=== PATIENT | male | born 1965 | race Two or more races ===

== ENCOUNTER → 2024-05-05 | Outpatient (CLI) | payer MEDICARE, MEDICAID, SELFPAY ==
[2024-05-05 08:44] LABS: Basophils % (Auto) 1 % (0-2.5); Eosinophils # (Auto) 0.1 Thou/mm3 (0.0-0.5); Eosinophils % (Auto) 4 % (0-10); Hematocrit 43.5 % (41.0-53.0); Hemoglobin 14.9 g/dL (13.5-16.0); Immature Granulocytes % (Auto) 0 % (0-0); Lymphocytes # (Auto) 0.5 Thou/mm3 (1.0-4.8); Lymphocytes % (Auto) 15 % (10-50); Mean Corpuscular HGB Conc 34.3 g/dl (31.0-37.0); Mean Corpuscular Hemoglobin 30.7 pg (25.0-35.0); Mean Corpuscular Volume 90 fL (80-100); Monocytes # (Auto) 0.3 Thou/mm3 (0.0-0.8); Monocytes % (Auto) 8 % (0-12); Neutrophils # (Auto) 2.4 Thou/mm3 (1.8-7.7); Neutrophils % (Auto) 73 % (37-80); Nucleated Red Blood Cell % 0 /100 WBC (0); Platelet Count 206 Thou/mm3 (140-440); RDW Standard Deviation 39.8 fL (35.1-43.9); Red Blood Count 4.85 Miln/mm3 (4.50-5.90); White Blood Count 3.3 Thou/mm3 (3.8-10.6)
[2024-05-05 09:14] LABS: Alanine Aminotransferase 32 U/L (10-49); Albumin, Serum 4.4 gm/dL (3.4-4.8); Albumin/Globulin Ratio 1.7 (1.2-2.2); Alkaline Phosphatase 123 U/L (46-116); Anion Gap 6 (7-16); Aspartate Amino Transferase 24 U/L (0-34); BUN/Creatinine Ratio 18 Ratio (12-20); Bilirubin,Total 0.9 mg/dL (0.3-1.2); Blood Urea Nitrogen 14 mg/dL (9-23); Calcium 9.6 mg/dL (8.3-10.6); Calcium (Corrected) 9.6 mg/dL (8.5-10.1); Carbon Dioxide 28.3 mMol/L (20.0-31.0); Chloride 105 mMol/L (98-107); Creatinine (Component) 0.8 mg/dL (0.6-1.3); Globulin 2.6 gm/dL (2.3-3.5); Glucose 87 mg/dL (74-106); Osmolality,Calculated 277 (275-295); Potassium 4.2 mMol/L (3.4-5.1); Sodium 139 mMol/L (136-145); eGFR > 60 See Note
[2024-05-07 22:09] LABS: CD19 Percentage 3 % (6-29); CD19, Absolute <20 cells/uL (110-660); CD3 Percentage 22 % (57-85); CD3, Absolute 106 cells/uL (840-3060); CD3-CD16+CD56+ % 76 % (4-25); CD3-CD16+CD56+ (Abs) 361 cells/uL (70-760); CD4 Percentage 8 % (30-61); CD4, Absolute 41 cells/uL (490-1740); CD4/CD8 Ratio 0.52 (0.86-5.00); CD8 Percentage 15 % (12-42); CD8, Absolute 77 cells/uL (180-1170)
[2024-05-10 06:41] LABS: Lymphocytes, Absolute 493 cells/uL (850-3900)
== END | disposition home or self-care (01) ==
LOC: COPL 07:15
PROVIDERS: PCP Psychiatry & Neurology Neurology; Referring Provider Psychiatry & Neurology Neurology; Visit Provider Psychiatry & Neurology Neurology
DX: G35 Multiple sclerosis (principal); E78.5 Hyperlipidemia, unspecified
CPT/HCPCS: 36415; 80053; 85025; 86355; 86357; 86359; 86360

== ENCOUNTER → 2024-08-23 | Outpatient (CLI) | payer MEDICARE, MEDICAID, SELFPAY ==
[2024-08-23 08:40] LABS: Basophils % (Auto) 1 % (0-2.5); Eosinophils # (Auto) 0.1 Thou/mm3 (0.0-0.5); Eosinophils % (Auto) 2 % (0-10); Hematocrit 43.1 % (41.0-53.0); Hemoglobin 14.3 g/dL (13.5-16.0); Immature Granulocytes % (Auto) 0 % (0-0); Immature Granulocytes Auto 0.01 Thou/mm3 (0.00-0.00); Lymphocytes # (Auto) 0.4 Thou/mm3 (1.0-4.8); Lymphocytes % (Auto) 11 % (10-50); Mean Corpuscular HGB Conc 33.2 g/dl (31.0-37.0); Mean Corpuscular Hemoglobin 30.1 pg (25.0-35.0); Mean Corpuscular Volume 91 fL (80-100); Monocytes # (Auto) 0.3 Thou/mm3 (0.0-0.8); Monocytes % (Auto) 8 % (0-12); Neutrophils # (Auto) 2.7 Thou/mm3 (1.8-7.7); Neutrophils % (Auto) 79 % (37-80); Nucleated Red Blood Cell % 0 /100 WBC (0); Platelet Count 240 Thou/mm3 (140-440); RDW Standard Deviation 40.3 fL (35.1-43.9); Red Blood Count 4.75 Miln/mm3 (4.50-5.90); White Blood Count 3.4 Thou/mm3 (3.8-10.6)
[2024-08-23 08:58] LABS: Alanine Aminotransferase 19 U/L (10-49); Albumin, Serum 4.1 gm/dL (3.4-4.8); Albumin/Globulin Ratio 1.6 (1.2-2.2); Alkaline Phosphatase 96 U/L (46-116); Anion Gap 5 (7-16); Aspartate Amino Transferase 18 U/L (0-34); BUN/Creatinine Ratio 24 Ratio (12-20); Bilirubin,Total 0.5 mg/dL (0.3-1.2); Blood Urea Nitrogen 19 mg/dL (9-23); Calcium 9.1 mg/dL (8.3-10.6); Calcium (Corrected) 9.1 mg/dL (8.5-10.1); Carbon Dioxide 29.6 mMol/L (20.0-31.0); Cardiac Risk Estimate 3.8 RATIO (4.0-6.7); Chloride 108 mMol/L (98-107); Cholesterol 172 mg/dL (132-200); Creatinine (Component) 0.8 mg/dL (0.6-1.3); Free T4 (Free Thyroxine) 1.24 ng/dL (0.89-1.76); Globulin 2.6 gm/dL (2.3-3.5); Glucose 94 mg/dL (74-106); HDL Cholesterol 45 mg/dL (40-60); LDL Cholesterol,Calculated 109 mg/dL (0-130); Osmolality,Calculated 287 (275-295); Sodium 143 mMol/L (136-145); Thyroid Stimulating Hormone 2.75 uIU/mL (0.55-4.78); Total Protein 6.7 gm/dL (5.7-8.2); Triglycerides 92 mg/dL (30-150); eGFR > 60 See Note
[2024-08-23 10:03] LABS: Glucose Estimated Average 103 mg/dL (80-131); Hemoglobin A1C 5.2 % Hgb (4.8-6.0)
[2024-08-23 10:11] LABS: Vitamin D 25 Hydroxy Total 35.2 ng/mL (7.3-40.2)
== END | disposition home or self-care (01) ==
PROVIDERS: PCP Internal Medicine; Referring Provider Internal Medicine; Visit Provider Internal Medicine
DX: M19.90 Unspecified osteoarthritis, unspecified site (principal); E55.9 Vitamin D deficiency, unspecified; E11.9 Type 2 diabetes mellitus without complications
CPT/HCPCS: 36415; 80053; 80061; 82306; 83036; 84439; 84443; 85025

== ENCOUNTER → 2024-08-25 | Outpatient (CLI) | payer MEDICARE, MEDICAID, SELFPAY ==
[2024-08-30 06:52] LABS: Fecal Globin Result NOT DETECTED (NOT DETECTED)
== END | disposition home or self-care (01) ==
LOC: SLDO 10:34
PROVIDERS: PCP Internal Medicine; Referring Provider Internal Medicine; Visit Provider Internal Medicine
DX: M19.90 Unspecified osteoarthritis, unspecified site (principal)
CPT/HCPCS: 82274; G0328

== ENCOUNTER 2025-01-11 14:00 | Inpatient (IN) | payer MEDICARE, MEDICAID, SELFPAY ==
[2025-01-11] VITALS (7 sets, daily range): BP systolic 104–134; BP diastolic 60–90; PULSE 67–113; RESP 13–96; TEMP 36.4–36.8; O2SAT 96–99; BMI 19.3; BMI 24.1
--- NOTE | 2025-01-11 | XR_ITS ---
Examination: MRI brain without intravenous contrast. Date and time of exam: January 11, 2025 1700 hours Comparison October 09, 2023 INDICATIONS: Stroke alert this a.m., onset focal neurologic deficit including slurred speech, history white matter change consistent with demyelinating disease on brain MRI October 09, 2023 Technique: Multiple axial and sagittal images of the brain obtained. Siemens high-resolution 1.5 Rea short bore scanners utilized. Sagittal sections, T1-weighted, TR 500, TE 14, are performed. Axial sections proton-density and T2-weighted have been obtained. Inversion recovery axial images, TR 9, 260, TE 111, TI 2500. Diffusion weighted images, axial sections, TR 4800, TE 128, B value 1000 Axial sections, ADC map, TR 4800, TE 128 Findings: Enlargement of the sella turcica is not present. The optic chiasm and infundibular are not remarkable. Prepontine and interpeduncular cisterns are not enlarged. There is no localized enlargement of the medulla or navdeep. Fourth ventricle and cerebellar tonsils appear normal in position. No subacute area of hemorrhage density is seen. Mass in the cerebellopontine angle region is not evident. Globes symmetrical. Orbital musculature including medial lateral rectus muscles do not exhibit abnormality. Diffusion-weighted images demonstrate no focus of restricted diffusion. Increased white matter signal prominent white matter change Mass effect upon the ventricular system is not identified. Impression: Negative for acute hemorrhage of mass effect or midline shift No acute infarct Prominent white matter change, differential would include accelerated chronic microvascular white matter change, demyelinating disease, clinical correlation advised
--- NOTE | 2025-01-11 14:08 | XR_ITS ---
Examination: CT brain head without contrast. 2-D sagittal coronal reconstructions Date and time of exam:December 20162024 1412 hours INDICATIONS: Stroke alert, onset focal neurologic deficit including surgical speech today CTDI: vol (mGy):49.6 DLP: (mGycm):1031 Technique: Multiple CT axial sections of the brain have been obtained, 5 mm slice thickness. Contrast has not been administered. 2-D sagittal, coronal reconstructions have been obtained Low dose protocols were performed. One or more of the following dose reduction techniques were used; automated exposure control, adjustment of the mA and/or KV according to patient size, use of iterative reconstruction technique. Findings: No significant ventricular enlargement. Intra-axial or extra-axial hemorrhage density is not seen. No mass effect or midline shift Basal cisterns are not remarkable. Fourth ventricle is midline. Cranial vault intact. Impression: Negative for acute hemorrhage, mass effect or midline shift
--- NOTE | 2025-01-11 14:08 | XR_ITS ---
Examination: CTA carotids with intravenous contrast CTA brain, head with intravenous contrast. 2-D sagittal, coronal reconstructions. 3-D reconstructions. Exam date and time: January 11, 2025 1429 hours INDICATIONS: Stroke alert, onset focal neurologic deficit including slurred speech today CTDI: vol (mGy) 15.9 DLP: (mGycm) 437 Technique: Multiple CTA axial brain, head carotid images post intravenous contrast injection 75 cc, Isovue-370. 2-D sagittal, coronal reconstructions. 3-D reconstructions, 3-D post processing including vascular maximum intensity projection images. Low dose protocols were performed. One or more of the following dose reduction techniques were used; automated exposure control, adjustment of the mA and/or KV according to patient size, use of iterative reconstruction technique. Findings: No common carotid carotid bifurcation or significant internal carotid artery stenoses Small right vertebral artery but the vertebral arteries in the neck appear intact No cerebral large vessel arterial occlusions or thrombus IMPRESSION: No significant neck arterial stenoses No cerebral large vessel arterial occlusions or thrombus
--- NOTE | 2025-01-11 14:08 | XR_ITS ---
Examination: AP chest single view TECHNIQUE: AP portable semiupright chest single view Date and time: January 11, 2025 1435 hours INDICATIONS: Altered mental status stroke alert today FINDINGS: No aspiration pneumonia Normal heart size Bones are demineralized IMPRESSION: No aspiration pneumonia
--- NOTE | 2025-01-11 14:08 | EKG_ITS ---
[facility] Test Date: 2025-01-11 Pat Name: SHAY WAY Department: Room: - Gender: Male Job Honer: : 1965 Requested By: Bal Valentine Order Number: [id number] Reading MD: Bal Valentine Measurements Intervals [place] Rate: 96 P: 56 CO: 160 QRS: -23 QRSD: 89 T: 60 QT: 355 QTc: 451 Interpretive Statements SINUS RHYTHM BORDERLINE LEFT AXIS DEVIATION [QRS AXIS < -20] No previous ECG available for comparison /store/S0/[id number].pdf
--- NOTE | 2025-01-11 14:12 | EDNOTE_ITS ---
ED General RME/HPI General Chief complaint: Weakness Stated complaint: ALTERED Time Seen by Provider: 01/11/25 14:07 Arrival date/time: 01/11/25 14:00 RME / HPI RME / HPI narrative: Patient comes in by EMS for reported abnormal speech: At 8:00 this morning but later this afternoon his speech was noted to be impaired and EMS was called and they brought him in for evaluation. He does have a history of multiple sclerosis and stopped taking his medicine 3 weeks ago. No family is present to explain what a normal speech this morning and is in because of that a stroke alert was called and patient was taken to the CT scanner at 1410 hrs. No other information is known at this time. Related Data Home Medications ?Medication ?Instructions ?Recorded ?Confirmed Unobtainable 09/01/18 09/01/18 Allergies Allergy/AdvReac Type Severity Reaction Status Date / Time aspirin Allergy Severe STOMACH Verified 01/11/25 15:02 IRRITATION Review of Systems Review of Systems Systems Reviewed: All systems reviewed, normal except as documented Past Medical History Past Medical History NEUROLOGIC: Positive Neurological Disorders and Multiple Sclerosis MUSCULOSKELETAL: Positive Musculoskeletal Disorders and Muscular Dystrophy (MULTIPLE SCLEROSIS) Surgical History SURGICAL: Positive Ear Surgery, Nose Surgery and Throat Surgery Social History SMOKING STATUS: Never smoker ED Exam Narrative Physical exam: Physical Exam: General: The vital signs were reviewed. Patient has very dysarthric speech he appears to give a good eye contact and appropriate response to questions accordingly. Hard to understand his verbal responses though. The patient is non-toxic, in no apparent distress and appears healthy with a patent airway, no respiratory distress and has no apparent circulatory problems. Head & Scalp: Normocephalic, atraumatic. Face: Appears normal and is without lesions, deformity. Ears: Left external pinna appears normal. Right external pinna appears normal. Eyes: The sclera is anicteric. No obvious photophobia. The Left and Right Orbit/Lid/Conjunctiva appears normal without swelling, discoloration or injection. Nose: The nose is without deformity, discharge or tenderness; Throat: Appears normal. The mucous membranes are pink and moist without exudates, redness or mass seen. The tongue appears normal. Neck: The neck is supple and no apparent mass or adenopathy. Chest: The chest wall is normal in size and symmetry and has no chest wall tenderness or crepitus. The patient displays normal ventilator effort without retractions, accessory muscle use and has adequate air movement bilaterally with no wheezes and no rales. Cardiovascular: Regular rate and rhythm; No murmurs, rubs, or gallops; Gastrointestinal: The abdomen appears normal. No obvious hernias or mass. The abdomen is soft and benign, non-distended, with no pain, no guarding and no rebound tenderness. Bowel sounds are present and normal sounding. No CVA tenderness. Genitourinary: Back/Spine: Normal inspection Extremities/Musculoskeletal/lymphatic: The bilateral upper and lower extremities are warm. There is no evidence of arterial insufficiency. There is no evidence of venous insufficiency/edema. The patient spontaneously moves bilateral upper and lower extremities with no pain and no limitation of movement. There is no apparent, injury or trauma. Skin: The skin is warm, dry and intact. No rashes. No petechia. No purpura. No abnormal bruising. The color is appropriate with no cyanosis. Mental status/Psychiatric: Mental status is appears to be appropriate no obvious suicidal homicidal or hallucinations. Neurological: The patient is awake, alert, interactive, cordial, cooperative and is oriented to name and situation. The patient follows commands and answers historical question with no impairment. Patient has obvious dysarthric voice and this sounds seem to respond to questions accordingly but she cannot understand any words. There is no visual disturbance apparent. The pupils are equal and reactive bilaterally with normal eye movements and no diplopia The bilatera he has some chronic baseline left arm weakness right arm dredge pipeman strength is normal he lifts both legs up while on the gurney with no obvious deficits. The gait, station and balance were not tested due to acuity Course Quality Measures Suspected type of Stroke: Non Acute Last known well (date): 01/11/25 Last known well (time): 08:00 Tenecteplase given: Reason(s) TPA not given: Outside the time window not given stroke Orders Category Date Time Status Bedside Blood Glucose NOW Care 01/11/25 14:08 Active Interior Assemblies Installer NOW Care 01/11/25 14:08 Active Continuous Pulse Oximetry NOW Care 01/11/25 14:08 Completed EKG (ED ONLY) *Do not use* NOW Care 01/11/25 14:08 Completed In and Out Catheter NEEDED Care 01/11/25 14:08 Active Insert IV NOW Care 01/11/25 14:08 Active MRI Screening NOW Care 01/11/25 14:51 Active MRI Screening NOW Care 01/11/25 14:53 Active NIH Stroke Scale now Care 01/11/25 14:08 Active NPO NOW Care 01/11/25 14:08 Completed Nurse Swallow Screen x1 Care 01/11/25 14:08 Completed Consult to Neurology / Tele-Neurology Routine Cons 01/11/25 14:08 Active Consult to Neurology / Tele-Neurology Stat Cons 01/11/25 16:[address] angio stroke protocol Stat Exams 01/11/25 14:[address] stroke protocol Stat Exams 01/11/25 14:08 Completed EKG (ED Only) Stat Exams 01/11/25 14:08 Draft MR head/brain wo con Stat Exams 01/11/25 Completed XR chest 1V portable Stat Exams 01/11/25 14:08 Completed CBC Stat Lab 01/11/25 14:26 Completed Comprehensive Metabolic Panel Stat Lab 01/11/25 14:26 Completed Drug Screen,Urine Stat Lab 01/11/25 15:50 Completed HCG Titer if Positive Stat Lab 01/11/25 14:26 Completed Magnesium Stat Lab 01/11/25 14:26 Completed Partial Thromboplastin Time Stat Lab 01/11/25 14:26 Completed Prothrombin Time with INR Stat Lab 01/11/25 14:26 Completed Troponin I Stat Lab 01/11/25 14:26 Completed Urinalysis Stat Lab 01/11/25 15:50 Completed Urine Culture Stat Lab 01/11/25 15:50 Received Oxygen Delivery NOW RT 01/11/25 14:08 Completed Vital Signs Vital signs: Vital Signs Pulse Rate 111 H 01/11/25 14:10 Respiratory Rate 14 01/11/25 14:10 Critical Care Time Critical Care Time Critical Care Time: Yes Total Critical Care Time (min.): 45 Attestation: Patient presented with acute stroke symptoms requiring a stroke alert. His acute onset of dysarthric symptoms are worsening as he has some residual MS in the background. See MDM for further discussion The high probability of sudden, clinically significant deterioration in the patient's condition required the highest level of my preparedness to intervene urgently. The services I provided to this patient were to treat and/or prevent clinically significant deterioration. Services included the following: chart data review, reviewing nursing notes and/or old charts, documentation time, client service consultant c ollaboration regarding findings and treatment options, medication orders and management, direct patient care, vital sign assessments and ordering, interpreting and reviewing diagnostic studies and lab tests. Aggregate critical care time includes only time during which I was engaged in work directly related to the patient's care, as described above, whether at bedside or elsewhere in the Emergency Department. It did not include time spent performing other reported procedures or the services of residents, students, nurses or physician assistants. Discharge Plan Plan Patient Disposition: Admit Acute Care w/in Hospital Discharge Disposition comment: Hospitalist to admit Dr Sheehan to consult Problem List Clinical Impression: Dysarthria, Hx of multiple sclerosis MDM Narrative MDM hospital course: Patient presents emergency room with new onset of dysarthria evidently worse from the baseline since 8:00 this morning. No patient is outside of the window for tPA. Stroke alert protocol was initiated. No Dr Sheehan is this patient's neurologist so I contacted her and she states the patient has chronic dysarthria but agrees with getting CT a CTA since there is some evidence of worsening. Or at least for the best of our history. Medical workup reveals a white count of 12.8 hemoglobin of 12.6 PT/INR within normal limits CHEM panel is unremarkable other than a potassium of 3.2. Urine came back negative catheter specimen with 5 red cells and 1 white cell drug screen was negative. test was Head CT came back negative CT of the head was also negative. Patient was a stroke alerted patient and teleneurologist called back felt this was not a tPA candidate which I agree is he is out of the window for that and there was no obvious acute evidence of CVA symptoms other than dysarthria which might even be chronic as it impossible to determine if his dysarthria is baseline or worse than baseline. Either way he is going to be admitted. Dr. Sheehan will be consulting and MRI is pending per request of the neurology people. Hospitalist was called and they will be admitting. Clinical Information Provided by patient and EMS Medical Records Reviewed [facility] and EMS I reviewed ED visit on 09/02/2018 Meds/Rx Considered, not Ordered None Labs/Rad/Tests considered, not Ordered None Chronic Illness/Social Conditions which may negatively complicate care or outcome(s)-explain: None or not applicable EKG Interpretation EKG #1: Date/time of EK01/11/25 15:19 pm EKG interpretation: Sinus rhythm, rate 96, no STEMI. Lab Interpretation Labs: see narrative above Imaging Imaging interpretation: see narrative above Radiology reports / interpretation(s): Ordering Physician: Bal Valentine MD Date of Service: 01/11/25 Procedure(s): XR chest 1V portable Accession Number(s): [id number] cc: Bal Valentine MD; Jose Suazo MD~ Examination: AP chest single view TECHNIQUE: AP portable semiupright chest single view Date and time: January 11, 2025 1435 hours INDICATIONS: Altered mental status stroke alert today FINDINGS: No aspiration pneumonia Normal heart size Bones are demineralized IMPRESSION: No aspiration pneumonia Dictated By: Jose Suazo MD Signed By: <Electronically signed by Jose Suazo MD in OV> 01/11/25 1501 Ordering Physician: Bal Valentine MD Date of Service: 01/11/25 Procedure(s): CT stroke protocol Accession Number(s): [id number] cc: Bal Valentine MD; Jose Suazo MD~ Examination: CT brain head without contrast. 2-D sagittal coronal reconstructions Date and time of exam:December 20162024 1412 hours INDICATIONS: Stroke alert, onset focal neurologic deficit including surgical speech today CTDI: vol (mGy):49.6 DLP: (mGycm):1031 Technique: Multiple CT axial sections of the brain have been obtained, 5 mm slice thickness. Contrast has not been administered. 2-D sagittal, coronal reconstructions have been obtained Low dose protocols were performed. One or more of the following dose reduction techniques were used; automated exposure control, adjustment of the mA and/or KV according to patient size, use of iterative reconstruction technique. Findings: No significant ventricular enlargement. Intra-axial or extra-axial hemorrhage density is not seen. No mass effect or midline shift Basal cisterns are not remarkable. Fourth ventricle is midline. Cranial vault intact. Impression: Negative for acute hemorrhage, mass effect or midline shift Dictated By: Jose Suazo MD Signed By: <Electronically signed by Jose Suazo MD in OV> 01/11/25 1416 Ordering Physician: Bal Valentine MD Date of Service: 01/11/25 Procedure(s): CT angio stroke protocol Accession Number(s): [id number] cc: Bal Valentine MD; Jose Suazo MD~ Examination: CTA carotids with intravenous contrast CTA brain, head with intravenous contrast. 2-D sagittal, coronal reconstructions. 3-D reconstructions. Exam date and time: January 11, 2025 1429 hours INDICATIONS: Stroke alert, onset focal neurologic deficit including slurred speech today CTDI: vol (mGy) 15.9 DLP: (mGycm) 437 Technique: Multiple CTA axial brain, head carotid images post intravenous contrast injection 75 cc, Isovue-370. 2-D sagittal, coronal reconstructions. 3-D reconstructions, 3-D post processing including vascular maximum intensity projection images. Low dose protocols were performed. One or more of the following dose reduction techniques were used; automated exposure control, adjustment of the mA and/or KV according to patient size, use of iterative reconstruction technique. Findings: No common carotid carotid bifurcation or significant internal carotid artery stenoses Small right vertebral artery but the vertebral arteries in the neck appear intact No cerebral large vessel arterial occlusions or thrombus IMPRESSION: No significant neck arterial stenoses No cerebral large vessel arterial occlusions or thrombus Dictated By: Jose Suazo MD Signed By: <Electronically signed by Jose Suazo MD in OV> 01/11/25 1500 Medication Administration(s) Medication Administration History Acetaminophen (Acetaminophen 325 Mg Tablet) 650 mg PO Q6H PRN PRN Reason: Fever >100.4 Stop: 02/10/25 17:21 Acetaminophen (Acetaminophen 325 Mg Tablet) 650 mg PO Q6H PRN PRN Reason: PAIN SCALE 1-3 (mild Stop: 02/10/25 17:21 Enoxaparin Sodium (Enoxaparin Sod Inj 40 Mg/0.4 Ml Syringe) 40 mg SC QDAY LIZZ Stop: 01/26/25 08:59 Magnesium Sulfate (Magnesium Sulfate Ivpb) 4 gm in 50 mls @ 12.5 mls/hr IV X1 ONE Stop: 01/11/25 21:38 Ondansetron HCl (Ondansetron Inj 2 Mg/Ml Inj 2 Ml) 4 mg IVP Q6H PRN; Protocol PRN Reason: NAUSEA OR VOMITING Stop: 02/10/25 17:21 Oxycodone/Acetaminophen (Oxycodone/Apap 5/325 Tablet) 1 tab PO Q6H PRN PRN Reason: PAIN SCALE 4-6 (Moderate Stop: 01/16/25 17:21 Pantoprazole Sodium (Pantoprazole 40 Mg Tablet) 40 mg PO QDAY LIZZ Stop: 02/11/25 08:59 Sennosides (Senna Tablet) 1 tab PO QDAY PRN; Protocol PRN Reason: constipation Stop: 02/10/25 17:21 Discontinued Medications Morphine Sulfate (Morphine Sulf Inj 10 Mg/Ml Vial) 1 mg IVP Q4HR PRN PRN Reason: PAIN SCALE 7-10 (Severe Stop: 01/16/25 17:21 Potassium Chloride (Potassium Chloride 20 Meq Tabcr) 40 meq PO X1 ONE Stop: 01/11/25 17:38 Consultations/Discussions re: Management Consult #1: Date/time: 01/11/25 14:34 PM Physician, specialty, service, details: I spoke with teleneurologist Dr. Patel. States patient is not a TNK candidate and is out of time window. Consult #2: Date/time: 01/11/25 16:45 PM Physician, specialty, service, details: I spoke with neurologist Dr. Sheehan. Discussed patients PMHx, HPI, ED course, exam findings, labs, and radiology results. Agrees to consult. Diagnosis Most likely dx, and/or detailed dx discussion: Dysarthria Hx of multiple sclerosis Dispositon Disposition: Admit
--- NOTE | 2025-01-11 14:35 | PD.TNEURO ---
Tele Neuro Consultation Consultation Date 01/11/25 Most Recent Vital Signs Last Vital Signs Temp 97.8 F 01/11/25 14:13 Pulse 108 H 01/11/25 14:13 Resp 18 01/11/25 14:13 BP 109/79 01/11/25 14:13 Pulse Ox 97 01/11/25 14:13 O2 Del Method Room Air 01/11/25 14:13 Consultation Narrative [facility] TeleNeurology Consult Services Patient Name:???mary gonzalez Date of :???1965 Identification Number:??? Date of Service:???01/11/2025 14:07:19 Diagnosis:?G93.49 - Encephalopathy Multifactorial ?R47.81 - Slurred speech Impression: ?Patient is a 59-year-old male with unclear past medical history,? 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 ?As per report patient presents with complaints of slurred speech by family members. Last well-known was 8 AM this morning. Patient himself endorses overall generalized weakness, does not complain of slurred speech. Mentions that it is his baseline. Appears mildly encephalipathic. Keeps talking about medication which he used to take several years back which made him fall. ?On exam mild extraocular motion deficits involving the left eye is noticed which patient claims is from the past. Mildly dysarthric speech unclear if it is his baseline. Severe left upper extremity ataxia. No clear lateralizing numbness or weakness. Endorses generalized overall weakness. Noncooperative for visual field exam. ?Head CT appears unremarkable with no acute intracranial hemorrhage or large territorial infarct. ? ? ?No clear focal neurological deficits which is new based on available history and exam. ?Unclear last well-known, 8 AM by best estimate, outside IV thrombolytic window. ?Differential diagnosis includes stroke, MS flareups, revisitation of prior MS symptoms, encephalopathy. ?Consider a broad encephalopathy workup with toxic, metabolic, infectious etiologies. ?Consider obtaining MRI brain with and without contrast. ?Continue CHIEF WRITER antithrombotics. Our recommendations are outlined below. Recommendations: ? Stroke/Telemetry Floor ? Neuro Checks (Q2) ? Bedside Swallow Eval ? DVT Prophylaxis ? IV Fluids, Normal Saline ? Head of Bed 30 Degrees ? Euglycemia and Avoid Hyperthermia (PRN Acetaminophen) ?No clear focal neurological deficits which is new based on available history and exam. ?Unclear last well-known, 8 AM by best estimate, outside IV thrombolytic window. ?Differential diagnosis includes stroke, MS flareups, revisitation of prior MS symptoms, encephalopathy. ?Consider a broad encephalopathy workup with toxic, metabolic, infectious etiologies. ?Consider obtaining MRI brain with and without contrast. ?Continue CHIEF WRITER antithrombotics. Advanced Imaging:Advanced imaging has been ordered. Results pending. Metrics: Last Known Well: 01/11/2025 08:00:00 Dispatch Time: 01/11/2025 14:07:18 Arrival Time: 01/11/2025 14:08:04 Initial Response Time: 01/11/2025 14:11:21Symptoms: Slurred speech. Initial patient interaction: 01/11/2025 14:16:10 NIHSS Assessment Completed: 01/11/2025 14:25:06Patient is not a candidate for Thrombolytic. Thrombolytic Medical Decision: 01/11/2025 14:25:45Patient was not deemed candidate for Thrombolytic because of following reasons: LKW outside 4.[address] Head: CT head unremarkable for acute infarction or hemorrhage per Radiology: report reviewed Primary Provider Notified of Diagnostic Impression and Management Plan on: 01/11/2025 14:34:42 History of Present Illness:Patient is a 59 year old Male. Patient was brought by EMS for symptoms of Slurred speech. Patient is a 59-year-old male with unclear past medical history,? 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 Initial report from medical staff at bedside suggest that patient was suffering from slurred speech which was noticed by son at around noon. The son initially checked on him at 8 AM this morning and he was seemingly normal. Patient himself is complaining of generalized weakness. Mentions that he went to bed yesterday night, he was feeling a little weird. He woke up this morning and he was able to get out of bed. Mentions that his speech is as it usually is. He keeps talking about some pills which he used to take, which made him fall in the restroom. He currently does not take pills. Unclear medication list at this time. He says he is weak all over his body. ? Past Medical History: Other PMH:? MS (previous left sided deficits), left eye Medications: Anticoagulant use:??Unknown Antiplatelet use:?Unknown Reviewed EMR for current medications Allergies:? Description:?As per chart Social History: Smoking: No Family History: There is no family history of premature cerebrovascular disease pertinent to this consultation ROS : 14 Points Review of Systems was performed and was negative except mentioned in HPI. Past Surgical History: There Is No Surgical History Contributory To Today?s Visit ? Examination: BP(110/81),?Pulse(89), 1A: Level of Consciousness - Alert; keenly responsive?+ 0 1B: Ask Month and Age - Both Questions Right?+ 0 1C: Blink Eyes & Squeeze Hands - Performs Both Tasks?+ 0 2: Test Horizontal Extraocular Movements - Normal?+ 0 3: Test Visual Gonzalez - No Visual Loss?+ 0 4: Test Facial Palsy (Use Grimace if Obtunded) - Normal symmetry?+ 0 5A: Test Left Arm Motor Drift - No Drift for 10 Seconds?+ 0 5B: Test Right Arm Motor Drift - No Drift for 10 Seconds?+ 0 6A: Test Left Leg Motor Drift - No Drift for 5 Seconds?+ 0 6B: Test Right Leg Motor Drift - No Drift for 5 Seconds?+ 0 7: Test Limb Ataxia (FNF/Heel-Christina) - Ataxia in 1 Limb?+ 1 8: Test Sensation - Normal; No sensory loss?+ 0 9: Test Language/Aphasia - Normal; No aphasia?+ 0 10: Test Dysarthria - Mild-Moderate Dysarthria: Slurring but can be understood?+ 1 11: Test Extinction/Inattention - No abnormality?+ 0 NIHSS Score:?2 NIHSS Free Text :?LUE ataxia, Noncooperative for visual field exam. would recommend in person evaluation. Pre-Morbid Modified [place] Scale:Unable to assess Spoke with :?ED Provider This consult was conducted in real time using interactive audio and video technology. Patient was informed of the technology being used for this visit and agreed to proceed. Patient located in hospital and provider located at home/office setting. Patient is being evaluated for possible acute neurologic impairment and high probability of imminent or life-threatening deterioration. I spent total of 43 minutes providing care to this patient, including time for face to face visit via telemedicine, review of medical records, imaging studies and discussion of findings with providers, the patient and/or family. Dr Jerrell Patel [facility] For Inpatient follow-up with [facility] physician please call [facility] at . As we are not an outpatient service for any post hospital discharge needs please contact the hospital for assistance. If you have any questions for the [facility] physicians or need to reconsult for clinical or diagnostic changes please contact us via [facility] at . ?
[2025-01-11 14:39] LABS: Basophils # (Auto) 0.0 Thou/mm3 (0.0-0.2); Basophils % (Auto) 0 % (0-2.5); Eosinophils # (Auto) 0.0 Thou/mm3 (0.0-0.5); Eosinophils % (Auto) 0 % (0-10); Hematocrit 36.3 % (41.0-53.0); Hemoglobin 12.6 g/dL (13.5-16.0); Immature Granulocytes Auto 0.08 Thou/mm3 (0.00-0.00); Lymphocytes # (Auto) 0.1 Thou/mm3 (1.0-4.8); Lymphocytes % (Auto) 1 % (10-50); Mean Corpuscular HGB Conc 34.7 g/dl (31.0-37.0); Mean Corpuscular Hemoglobin 30.1 pg (25.0-35.0); Mean Corpuscular Volume 87 fL (80-100); Monocytes # (Auto) 0.3 Thou/mm3 (0.0-0.8); Monocytes % (Auto) 2 % (0-12); Neutrophils # (Auto) 12.2 Thou/mm3 (1.8-7.7); Neutrophils % (Auto) 96 % (37-80); Nucleated Red Blood Cell # 0.00 Thou/mm3 (0.00-0.00); Nucleated Red Blood Cell % 0 /100 WBC (0); Platelet Count 211 Thou/mm3 (140-440); RDW Standard Deviation 39.8 fL (35.1-43.9); Red Blood Count 4.18 Miln/mm3 (4.50-5.90); White Blood Count 12.8 Thou/mm3 (3.8-10.6)
[2025-01-11 14:54] LABS: HCG Titer if Positive Negative; INR 1.1 (0.9-1.3); Partial Thromboplastin Time 25.2 Seconds (22.0-36.0); Prothrombin Time 12.0 Seconds (9.0-12.2)
--- NOTE | 2025-01-11 15:03 | PC.NURSE ---
PER DR. LOVE, TELENEUROLOGIST, PT NIH SCORE OF 2. PT NOT A CANDIDATE FOR TNK AT THIS TIME.
[2025-01-11 15:10] LABS: Alanine Aminotransferase 10 U/L (10-49); Albumin, Serum 3.9 gm/dL (3.4-4.8); Albumin/Globulin Ratio 1.4 (1.2-2.2); Alkaline Phosphatase 80 U/L (46-116); Anion Gap 10 (7-16); Aspartate Amino Transferase 17 U/L (0-34); BUN/Creatinine Ratio 15 Ratio (12-20); Bilirubin,Total 0.9 mg/dL (0.3-1.2); Blood Urea Nitrogen 12 mg/dL (9-23); Calcium 8.7 mg/dL (8.3-10.6); Calcium (Corrected) 8.8 mg/dL (8.5-10.1); Carbon Dioxide 24.2 mMol/L (20.0-31.0); Chloride 104 mMol/L (98-107); Creatinine (Component) 0.8 mg/dL (0.6-1.3); Estimated Creatinine Clearance 90.7 mL/min (>60); Globulin 2.7 gm/dL (2.3-3.5); Glucose 100 mg/dL (74-106); Magnesium 1.6 mg/dL (1.6-2.6); Osmolality,Calculated 275 (275-295); Potassium 3.2 mMol/L (3.4-5.1); Sodium 138 mMol/L (136-145); Total Protein 6.6 gm/dL (5.7-8.2); Troponin I < 0.020 ng/mL (0.0-0.045); eGFR > 60 See Note
[2025-01-11 16:03] LABS: Collection Type, Urine Catheter; Squamous Epithelial Cell,Urine 0 /hpf (0-5)
[2025-01-11 16:10] LABS: Bilirubin,Urine Negative (Negative); Blood,Urine Negative (Negative); Clarity,Urine Clear (Clear/Hazy); Color,Urine Yellow (Lt Yel-Yel); Glucose, Urine Negative (Negative); Ketones,Urine 1+ (Negative); Leukocyte Esterase,Urine Negative (Negative); Nitrite,Urine Negative (Negative); PH,Urine 7.0 (5.0-7.0); Protein,Urine Negative (Neg - Trace); RBC,Urine 5 /hpf (0-3); Urobilinogen,Urine 2.0 mg/dL (0.0-1.0); WBC,Urine 1 /hpf (0-5)
[2025-01-11 16:14] LABS: Specific Gravity,Urine 1.010 (1.001-1.035)
[2025-01-11 16:15] LABS: Amphetamine/Methamp Scrn,U Negative (Negative); Barbiturate Screen,Urine Negative (Negative); Benzodiazepines Screen,Urine Negative (Negative); Benzoylecgonine Screen, Ur Negative (Negative); Fentanyl Screen,Urine Negative (Negative); Opiate Screen,Urine Negative (Negative); THC Screen,Urine Negative (Negative)
--- NOTE | 2025-01-11 17:47 | ESHP_ITS ---
<Statement entered by Andrew Rader MD - 01/12/25 16:39> Patient was seen and examined at bedside. This patient is a 59-year-old male with past medical history of MS with residual left eye extraocular deficit not on immunotherapy presented with slurred speech. He does have a history of MS and stopped taking his medications 3 weeks ago. Last well-known time 8 AM. He was complaining of generalized weakness.NIHSS score 2. Head CT showed no acute changes. Head and neck CTA showed no large vessel occlusion. Teleneuro recommended admission for stroke workup. Will follow-up on MRI brain without contrast, echocardiogram with bubble study and neurology recommendations. Potassium was repleted. White count slightly elevated around 12.8. Magnesium was repleted. Urinalysis showed trace RBCs. EKG showed sinus rhythm with QTc 451. Chest x-ray showed no aspiration pneumonia. Patient does follows Dr. Sheehan, neurologist as outpatient. Of note, MRI brain from October 09, 2023 showed progression of white matter changes consistent with demyelinating disease. Awaiting MRI brain results. I discussed and supervised with the learning and development intern physician who took care of this patient. I personally saw and examined the patient. I agree with most of the assessment and plan. Disclaimer: Despite multiple revisions, due to the dictation software being used, the document bellow may not be free of grammatical errors including phonetic/typographic errors. However, this does not deter from our commitment to providing health care in the patient's best interest in mind. Plan of care discussed with attending Physician Dr. Nuno Rader MD PGY-3 Documentation for date of: 01/11/25 HPI History of Present Illness Chief complaint: Weakness History of present illness: Mr. James is a 59M with history of multiple sclerosis and dysarthria presents for weakness. Pt reports less arousable this morning and the son noticed he was having a slur speech that's different from his baseline, which prompted him to call 911 due to concern for possible stroke. Pt was last seen normal at 8am this morning. On initial encounter, pt is alert and oriented x 3. No facial asymmetry or focal neuro deficit noted. He complains of pain on his left hand, which he reports had greatly improved since he stopped taking his MS medications a month ago. He states that he stopped taking his MS medications a month prior because it is making him pee blood . He denies any history of a MS flare up before. Pt denies chest pain, shortness of breathe, clotting history, dysuria, diarrhea, constipation or vision change, but does mention a history of left optic nerve problem, which he is unaware of specific details. Upon return from MRI, the son states he looks a lot better, almost back to his baseline. On 01/11/2025, 6:30 PM. discussed with Mr. James the implications of a Do Not Resuscitate (DNR) order. Mr. James verbalized understanding that a DNR means no CPR or other resuscitative efforts would be made in the event of cardiac or respiratory arrest. Mr. James stated he does not want to be resuscitated and understands the potential consequences of this decision. Son present at bedside. Pt is [place] speaking, an interpretor was used for this encounter. He is admitted for stroke rule out. ED Course In the ED, intial labs show WBC 12.8, Hgb 12.6, Pt 12, ptt 25.2, INR 1.1, Na 138, K 3.2, Cl 104, Cr 0.8. Stroke alert called at 1455. CXR unremarkable. CT head negative for acute hemorrhage, mass effect or midline shift. CTA head and neck shows no significant neck arterial stenosis, no LVO. MRI non con head reads prominent white matter change. EKG NSR at rate of 96. POC Glucose 104. VS stable. Tele Neurologist consulted, NIHSS of 2, pt not a candidate for TnK at this time per tele neuro recommendation. ROS * Constitutional: NAD, a/o x 3, denies fever/chills. * GI: Denies nausea, vomiting. Normal BM. * CV: Denies chest pain or palpitations. * Resp: Denies SOB. * : Denies dysuria, CVA tenderness, suprapubic tenderness. * Neuro: Denies dizziness, no focal deficits. Dysarhtria at baseline. Chronic left arm pain. Past Medical History * Hx of multiple sclerosis * Dysarthria Social History * Lives at home, independent baseline with walker. * Remote history of smoking, alcohol, and cocaine use. Reports cessation 31 years ago. Surgical History * Left ear surgery, unspecific * Nose surgery, unspecific * Tonsillectomy Allergies * Aspirin Home Meds * Fingolimod HCL 0.5mg PO QD (NOT TAKING) * Baclofen 10mg (NOT TAKING) * Glycopyrrolate 1mg (NOT TAKING) Exam Vital Signs Temp Pulse Resp BP Pulse Ox O2 Del Method 97.6 F 88 21 H 105/70 96 Room Air 01/11/25 16:38 01/11/25 16:38 01/11/25 16:38 01/11/25 16:38 01/11/25 16:38 01/11/25 16:38 Narrative Exam General: NAD. Oriented x 3, normal mood and affect . Ambulate with walker at home. Skin: Good turgor, no rash, unusual bruising or prominent lesions Head: Normocephalic, atraumatic, no visible or palpable masses, depressions, or scaring. Eyes: Visual acuity intact, conjunctiva clear, sclera non-icteric, EOM intact, PERRL, no exudates or hemorrhages. Horizontal nystagmus on right gaze. Heart: No cardiomegaly or thrills; regular rate and rhythm, no murmur or gallop Lungs: Clear to auscultation and percussion. No rales, wheeze, or rhonchi Abdomen: Bowel sounds normal, no tenderness, organomegaly, masses, or hernia Back: No CVA tenderness Extremities: No amputations or deformities, cyanosis, edema or varicosities, peripheral pulses intact. 5/5 strength is all four extremities. Musculoskeletal: Muscle atrophy consistent with old age Neurologic: Sensation to pain, touch, and proprioception normal. Results: Labs 01/13/25 05:25 01/13/25 05:25 Labs: Short CBC 01/11/25 Range/Units 14:26 WBC 12.8 H (3.8-10.6) Thou/mm3 Hgb 12.6 L (13.5-16.0) g/dL Hct 36.3 L (41.0-53.0) % Plt Count 211 (140-440) Thou/mm3 BMP 01/11/25 14:26 Sodium 138 Potassium 3.2 L Chloride 104 Carbon Dioxide 24.2 BUN 12 Creatinine 0.8 Glucose 100 Calcium 8.7 Cardiac Enzymes 01/11/25 Range/Units 14:26 Troponin I < 0.020 (0.0-0.045) ng/mL Liver Function 01/11/25 Range/Units 14:26 Total Bilirubin 0.9 (0.3-1.2) mg/dL AST 17 (0-34) U/L ALT 10 (10-49) U/L Alkaline Phosphatase 80 (46-116) U/L Albumin 3.9 (3.4-4.8) gm/dL Urine 01/11/25 Range/Units 15:50 Urine Color Yellow (Lt Yel-Yel) Urine Clarity Clear (Clear/Hazy) Urine pH 7.0 (5.0-7.0) Ur Specific [place] 1.010 (1.001-1.035) Urine Protein Negative (Neg - Trace) Urine Glucose (UA) Negative (Negative) Quality Measures Quality Measures VTE prophylaxis and stroke Suspected type of Stroke: Non Acute Last known well (date): 01/11/25 Last known well (time): 08:00 Tenecteplase given: Reason(s) Tenecteplase not given: Outside the time window not given Rehab services: PT evaluation ordered and Speech Language Pathology eval ordered VTE Prophylaxis: pharmaceutical Antithrombotic by day 2:: no, due to drug allergy (Pt has drug allergy to aspirin. ) Statin ordered: n/a Anticoagulation ordered for A-fib or flutter (current or hx): not indicated Medications Home Medications and Allergies Home Medications ?Medication ?Instructions ?Recorded ?Confirmed ?Type No Known Home Medications 01/12/2512/22 History Allergies Allergy/AdvReac Type Severity Reaction Status Date / Time aspirin Allergy Severe STOMACH Verified 01/11/25 15:02 IRRITATION Visit Medications Acetaminophen (Acetaminophen 325 Mg Tablet) 650 mg PO Q6H PRN PRN Reason: Fever >100.4 Stop: 02/10/25 17:21 Acetaminophen (Acetaminophen 325 Mg Tablet) 650 mg PO Q6H PRN PRN Reason: PAIN SCALE 1-3 (mild Stop: 02/10/25 17:21 Enoxaparin Sodium (Enoxaparin Sod Inj 40 Mg/0.4 Ml Syringe) 40 mg SC QDAY LIZZ Stop: 01/26/25 08:59 Magnesium Sulfate (Magnesium Sulfate Ivpb) 4 gm in 50 mls @ 12.5 mls/hr IV X1 ONE Stop: 01/11/25 21:38 Ondansetron HCl (Ondansetron Inj 2 Mg/Ml Inj 2 Ml) 4 mg IVP Q6H PRN; Protocol PRN Reason: NAUSEA OR VOMITING Stop: 02/10/25 17:21 Oxycodone/Acetaminophen (Oxycodone/Apap 5/325 Tablet) 1 tab PO Q6H PRN PRN Reason: PAIN SCALE 4-6 (Moderate Stop: 01/16/25 17:21 Pantoprazole Sodium (Pantoprazole 40 Mg Tablet) 40 mg PO QDAY LIZZ Stop: 02/11/25 08:59 Sennosides (Senna Tablet) 1 tab PO QDAY PRN; Protocol PRN Reason: constipation Stop: 02/10/25 17:21 Discontinued Medications Morphine Sulfate (Morphine Sulf Inj 10 Mg/Ml Vial) 1 mg IVP Q4HR PRN PRN Reason: PAIN SCALE 7-10 (Severe Stop: 01/16/25 17:21 Potassium Chloride (Potassium Chloride 20 Meq Tabcr) 40 meq PO X1 ONE Stop: 01/11/25 17:38 Assessment & Plan Plan 59M with history of MS and dysarthria presents for weakness. Concerns for possible stroke by family member due to slur speech that is uncharacteristic to his baseline. Stroke alert initiated in ED. Initial CT head and CTA Head and neck unremarkable. MRI Brain shows prominent white matter change, correlating with MS history. Admitted for stroke rule out #Stroke rule out #MS Flareup #Dysarthia Initial stroke work up negative. Negative CT head and CTA head and neck. No focal neuro deficit noted on physical exam. NIHSS of 2. - Tele Neuro consulted. Dr. Patel recommends no intervention at this time. Pt not a candidate for TnK. - In-house neuro consult - Pending MRI Brain with contrast - Pending echo - failed swallow screen - Neuro check Q4H - aspiration precaution - NPO now - PT eval - Speech eval #Encephalopathy - UDS negative - Glucose 100 on admission - AST/ALT WNL on admission #Hypothyroidism - Pending TSH Dispo: Tele DVT prophylaxis: Lovenox 40mg QD GI prophylaxis: Protonix 40mg QD Diet: NPO Lines: Peripheral IV Code status: DNR Case discussed with my senior resident Dr. Schmidt Case discussed with my attending Dr. Nuno Chamberlain DO PGY 1 Attending Provider Attestation/Addendum Negin Muñoz DO, attest that I was physically present for the wei portions of the service and evaluated the patient with the resident and I reviewed and discussed the case with the resident and agree with the resident's findings and plans of care as documented above Patient is a 59-year-old male with past medical history of multiple sclerosis and dysarthria who presented to the ED due to worsening weakness and unresponsiveness this morning. Patient does have slurred speech at baseline, but due to inability to arouse patient, family called EMS and patient was subsequently brought to the ED during which a stroke alert was called. Upon evaluation, patient was noted to be alert and oriented x 3. He does have some slurred speech, but is intelligible. A CT head was done showing no acute intracranial findings. MRI without contrast also was done showing no acute infarct. However, due to concern for possible MS flare, hospice service was called from ED and to further workup acute CVA versus MS flare. At time of evaluation, neurology was at bedside. Patient appears to be back at his baseline mental status. Patient states that he does not like to take any of his MS medications including fingolimod due to worsening of his left arm pain. He states that he stopped his medications for over a month which resulted in relief of his left arm pain. In the ED, he was found to have leukocytosis and mild hypokalemia. However, rest of labs were unremarkable. Patient is able to move all 4 extremities with mild left upper extremity weakness. He is also noted to have horizontal nystagmus on exam. Case was discussed with neurology, plan for MRI with contrast to assess for possible MS flare/reactivation. Will also have physical therapy work with patient.
[2025-01-11] MEDS: Magnesium Sulfate 4 GM Ivpb 4 GM/50 ML BAG IV (18:07)
--- NOTE | 2025-01-11 23:42 | PD.NEUROCONS ---
History of Present Illness Data of Consult Requesting Physician: Negin Reina DO Primary Care Provider: Michele Leggett MD Consult Narrative History of present illness: Mr. James is a 59M with multiple sclerosis with baseline dysarthria known to me from outpatient evaluation presented for generalized weakness. Reportedly he was altered with less arousable this morning and the son noticed his speech was very much slurred that's different from his baseline, which prompted him to call 911 due to concern for possible stroke. Pt was last seen normal at 8am this morning. He was noted to be alert and oriented without any focal neuro deficit. He complains of pain on his left hand, which he thinks that greatly improved since he stopped taking his MS medications a month ago. He states that he stopped taking his MS medications a month prior because it is making him pee blood . He denies any history of a MS flare up before and immediately after. When he returned from MRI,his son stated he looks a lot better, almost back to his baseline. However, he is admitted for stroke rule out. Workup in the ER: Vitals: afebrile and stable Labs: WBC 12.8, Hgb 12.6, Pt 12, ptt 25.2, INR 1.1, Na 138, K 3.2, Cl 104, Cr 0.8. Imaging: CXR unremarkable. CT head negative for acute hemorrhage, mass effect or midline shift. CTA head and neck shows no significant neck arterial stenosis, no LVO. MRI non con head reads prominent white matter changes consistent with MS. Tele Neurologist consulted, NIHSS of 2, pt not a candidate for TnK at this time per tele neuro recommendation. Inhouse neurology was consulted and we decided to admit him for further workup. cc:: cc: Negin Reina DO Review of Systems Review of Systems Systems Reviewed: All systems reviewed, normal except as documented Past Medical History Past Medical History NEUROLOGIC: Positive Neurological Disorders and Multiple Sclerosis MUSCULOSKELETAL: Positive Musculoskeletal Disorders and Muscular Dystrophy (MULTIPLE SCLEROSIS) Surgical History SURGICAL: Positive Ear Surgery, Nose Surgery and Throat Surgery Social History SMOKING STATUS: Never smoker Meds Home Medications and Allergies Home Medications ?Medication ?Instructions ?Recorded ?Confirmed ?Type No Known Home Medications 01/12/25 01/12/25 History Allergies Allergy/AdvReac Type Severity Reaction Status Date / Time aspirin Allergy Severe STOMACH Verified 01/11/25 15:02 IRRITATION Exam - Neurology Vital Signs Temp Pulse Resp BP Pulse Ox O2 Del Method 97.6 F 91 15 134/90 H 98 Room Air 01/11/25 20:06 01/11/25 20:06 01/11/25 20:06 01/11/25 20:06 01/11/25 20:06 01/11/25 20:06 Narrative Exam GENERAL APPEARANCE: well developed, thin built male in no acute distress. HEENT: Normocephalic, atraumatic, extraocular movements intact. Pupils: Equal reacting to light and accommodation NECK: Supple, no JVD or bruits. CARDIOVASULAR: Heart: S1, S2 heard, regular without S3-S4 or murmur no rubs or gallops. LUNGS/CHEST: Clear to auscultation bilaterally. No rails, rhonchi, or wheezing. Normal inspection. ABDOMEN: Soft, nontender, with normal bowel sounds. No pulsatile masses. No rebound, rigidity, or guarding. Normal inspection and palpation. EXTREMITIES: Normal inspection and palpation. No edema, clubbing or cyanosis. SKIN: Warm and dry without rashes. Normal inspection. MUSCULOSKELETAL: No cervical, thoracic, lumbar or midline bony tenderness. Normal inspection. NEURO: Alert, awake and oriented x3. Cranial nerves: II through XII grossly intact. Speech and language: dysarthria as at baseline. Motor system: Tone and bulk: Normal: Strength: 5 out of 5 in all 4 extremities; No pronator drift noted. Deep tendon reflexes: 2+ bilaterally symmetrical. Plantar reflex: Downgoing bilaterally. Sensory system: Intact to all modalities of sensation bilaterally. Coordination: Intact to kunljg-cvlt-humkr and jtgq-ltlf-rgcx test bilaterally. Significant ataxia and dysmetria noted. No intention tremors noted. Gait: not tested. No signs of meningeal irritation noted. PSYCHIATRIC: Normal mood and affect. Results Labs 01/12/25 05:03 01/12/25 05:03 Labs: Short CBC 01/11/25 Range/Units 14:26 WBC 12.8 H (3.8-10.6) Thou/mm3 Hgb 12.6 L (13.5-16.0) g/dL Hct 36.3 L (41.0-53.0) % Plt Count 211 (140-440) Thou/mm3 BMP 01/11/25 14:26 Sodium 138 Potassium 3.2 L Chloride 104 Carbon Dioxide 24.2 BUN 12 Creatinine 0.8 Glucose 100 Calcium 8.7 Cardiac Enzymes 01/11/25 Range/Units 14:26 Troponin I < 0.020 (0.0-0.045) ng/mL Liver Function 01/11/25 Range/Units 14:26 Total Bilirubin 0.9 (0.3-1.2) mg/dL AST 17 (0-34) U/L ALT 10 (10-49) U/L Alkaline Phosphatase 80 (46-116) U/L Albumin 3.9 (3.4-4.8) gm/dL Urine 01/11/25 Range/Units 15:50 Urine Color Yellow (Lt Yel-Yel) Urine Clarity Clear (Clear/Hazy) Urine pH 7.0 (5.0-7.0) Ur Specific [place] 1.010 (1.001-1.035) Urine Protein Negative (Neg - Trace) Urine Glucose (UA) Negative (Negative) Assessment & Plan Assessment and plan (1) Dysarthria: Status: Acute Assessment and plan: improving. speech close to baseline. Needs swallow assessment and the decide about starting oral diet with appropriate consistency to prevent aspiration. reassured him regarding the negative MRI for acute stroke or acute MS exacerbation. But will need contrasted MRI brain tomorrow to see if he has any active lesions. (2) Hx of multiple sclerosis: Status: Chronic Assessment and plan: not interested in restarting disease modifying treatment at this time. Will do PT evaluation and then decide about the need for high dose Steroid infusion x3 days (3) Recent unexplained weight loss: Status: Acute Assessment and plan: consider w/u to know the etiology by primary team. (4) Hypokalemia: Status: Acute Assessment and plan: needs replacement
[2025-01-12] VITALS (10 sets, daily range): BP systolic 99–123; BP diastolic 63–80; PULSE 60–91; RESP 15–99; TEMP 36.3–37.1; O2SAT 97–100; BMI 15.0
--- NOTE | 2025-01-12 | XR_ITS ---
Examination: MRI brain with intravenous contrast TECHNIQUE: Multiple axial sagittal coronal brain MRI images post intravenous administration 11 cc gadolinium INDICATIONS: Slurred speech beginning yesterday, diagnosis multiple sclerosis Date and time: January 12, 2025 1412 hours Comparison noncontrast brain MRI January 11, 2025 FINDINGS: Ventricles are not enlarged. No mass effect upon the ventricular system. No effacement cortical sulcal markings. Significant bilateral mastoiditis. No abnormal enhancing cerebellar or cerebral lesions IMPRESSION: No abnormal enhancing cerebellar or cerebral lesions
[2025-01-12 05:27] LABS: Basophils # (Auto) 0.0 Thou/mm3 (0.0-0.2); Basophils % (Auto) 0 % (0-2.5); Eosinophils # (Auto) 0.0 Thou/mm3 (0.0-0.5); Eosinophils % (Auto) 0 % (0-10); Hematocrit 36.3 % (41.0-53.0); Hemoglobin 12.6 g/dL (13.5-16.0); Immature Granulocytes Auto 0.04 Thou/mm3 (0.00-0.00); Lymphocytes # (Auto) 0.3 Thou/mm3 (1.0-4.8); Lymphocytes % (Auto) 3 % (10-50); Mean Corpuscular HGB Conc 34.7 g/dl (31.0-37.0); Mean Corpuscular Hemoglobin 29.9 pg (25.0-35.0); Mean Corpuscular Volume 86 fL (80-100); Monocytes # (Auto) 0.3 Thou/mm3 (0.0-0.8); Monocytes % (Auto) 3 % (0-12); Neutrophils # (Auto) 9.2 Thou/mm3 (1.8-7.7); Neutrophils % (Auto) 93 % (37-80); Nucleated Red Blood Cell # 0.00 Thou/mm3 (0.00-0.00); Nucleated Red Blood Cell % 0 /100 WBC (0); Platelet Count 165 Thou/mm3 (140-440); RDW Standard Deviation 39.8 fL (35.1-43.9); Red Blood Count 4.21 Miln/mm3 (4.50-5.90); White Blood Count 9.9 Thou/mm3 (3.8-10.6)
[2025-01-12 05:45] LABS: INR 1.2 (0.9-1.3); Prothrombin Time 13.3 Seconds (9.0-12.2)
[2025-01-12 05:50] LABS: Glucose Estimated Average 111 mg/dL (80-131); Hemoglobin A1C 5.5 % Hgb (4.8-6.0)
[2025-01-12 06:12] LABS: Alanine Aminotransferase 10 U/L (10-49); Albumin, Serum 3.8 gm/dL (3.4-4.8); Albumin/Globulin Ratio 1.4 (1.2-2.2); Alkaline Phosphatase 81 U/L (46-116); Anion Gap 10 (7-16); Aspartate Amino Transferase 19 U/L (0-34); BUN/Creatinine Ratio 15 Ratio (12-20); Bilirubin,Total 0.9 mg/dL (0.3-1.2); Blood Urea Nitrogen 12 mg/dL (9-23); Calcium 8.7 mg/dL (8.3-10.6); Calcium (Corrected) 8.9 mg/dL (8.5-10.1); Carbon Dioxide 23.9 mMol/L (20.0-31.0); Cardiac Risk Estimate 4.8 RATIO (4.0-6.7); Chloride 102 mMol/L (98-107); Cholesterol 148 mg/dL (132-200); Creatinine (Component) 0.8 mg/dL (0.6-1.3); Estimated Creatinine Clearance 77.4 mL/min (>60); Globulin 2.8 gm/dL (2.3-3.5); Glucose 69 mg/dL (74-106); HDL Cholesterol 31 mg/dL (40-60); LDL Cholesterol,Calculated 95 mg/dL (0-130); Magnesium 2.2 mg/dL (1.6-2.6); Osmolality,Calculated 269 (275-295); Phosphorous 2.6 mg/dL (2.4-5.1); Potassium 4.8 mMol/L (3.4-5.1); Sodium 136 mMol/L (136-145); Thyroid Stimulating Hormone 2.24 uIU/mL (0.55-4.78); Total Protein 6.6 gm/dL (5.7-8.2); Triglycerides 110 mg/dL (30-150); eGFR > 60 See Note
--- NOTE | 2025-01-12 08:05 | PC.NURSE ---
Received call from . to do random blood glucose check on pt. [place], speech therapy stated she ordered a chopped diet and had given pt lots of food during her swallow eval. I took BS and notified blood glucose 65 and informed him pt's breakfast tray was ordered and pt was given orange juice and aftab crackers.
--- NOTE | 2025-01-12 08:22 | ESPR_ITS ---
Documentation for date of: 01/12/25 Subjective Subjective Interval history: Mr. James is a 59M with multiple sclerosis with baseline dysarthria known to me from outpatient evaluation presented for generalized weakness. Reportedly he was altered with less arousable this morning and the son noticed his speech was very much slurred that's different from his baseline, which prompted him to call 911 due to concern for possible stroke. Pt was last seen normal at 8am this morning. He was noted to be alert and oriented without any focal neuro deficit. He complains of pain on his left hand, which he thinks that greatly improved since he stopped taking his MS medications a month ago. He states that he stopped taking his MS medications a month prior because it is making him pee blood . He denies any history of a MS flare up before and immediately after. When he returned from MRI,his son stated he looks a lot better, almost back to his baseline. However, he is admitted for stroke rule out. Patient was examined at bedside. He reports that he feels better today. He states that he stopped taking his MS medication a month prior because it was making him feel off balance. He has tried several MS DMARDS in the past, but has been unable to tolerate each one. He states that he does not want to try any new medication for MS. patient reports that he is a bit more steady on his feet at home, but he feels like he is getting better since being in the hospital Exam Vital Signs Temp Pulse Resp BP Pulse Ox O2 Del Method 97.9 F 82 15 113/64 97 Room Air 01/12/25 07:39 01/12/25 07:39 01/12/25 07:39 01/12/25 07:39 01/12/25 07:39 01/12/25 07:39 Narrative Exam GENERAL APPEARANCE: well developed, thin built male in no acute distress. HEENT: Normocephalic, atraumatic, extraocular movements intact. Pupils: Equal reacting to light and accommodation NECK: Supple, no JVD or bruits. CARDIOVASULAR: Heart: S1, S2 heard, regular without S3-S4 or murmur no rubs or gallops. LUNGS/CHEST: Clear to auscultation bilaterally. No rails, rhonchi, or wheezing. Normal inspection. ABDOMEN: Soft, nontender, with normal bowel sounds. No pulsatile masses. No rebound, rigidity, or guarding. Normal inspection and palpation. EXTREMITIES: Normal inspection and palpation. No edema, clubbing or cyanosis. SKIN: Warm and dry without rashes. Normal inspection. MUSCULOSKELETAL: No cervical, thoracic, lumbar or midline bony tenderness. Normal inspection. NEURO: Alert, awake and oriented x3. Cranial nerves: II through XII grossly intact. Speech and language: dysarthria as at baseline. Motor system: Tone and bulk: Normal: Strength: 5 out of 5 in all 4 extremities; No pronator drift noted. Deep tendon reflexes: 2+ bilaterally symmetrical. Plantar reflex: Downgoing bilaterally. Sensory system: Intact to all modalities of sensation bilaterally. Coordination: Intact to gqnsov-vnmd-aoabgx and ewzj-ujgd-swod test bilaterally. He does have ataxia, dysmetria and intention tremors in both UE. No signs of meningeal irritation noted. Patient able to stand on his own and walk with support. PSYCHIATRIC: Normal mood and affect. Objective Labs 01/13/25 05:25 01/13/25 05:25 Labs: Laboratory Results - last 24 hr 01/11/25 01/11/25 01/12/25 14:26 15:50 05:03 WBC 12.8 H 9.9 RBC 4.18 L 4.21 L Hgb 12.6 L 12.6 L Hct 36.3 L 36.3 L MCV 87 86 MCH 30.1 29.9 MCHC 34.7 34.7 RDW Std Deviation 39.8 39.8 Plt Count 211 165 D Neut % (Auto) 96 H 93 H Lymph % (Auto) 1 L 3 L [place] % (Auto) 2 3 Eos % (Auto) 0 0 Baso % (Auto) 0 0 Neut # (Auto) 12.2 H 9.2 H Lymph # (Auto) 0.1 L 0.3 L [place] # (Auto) 0.3 0.3 Eos # (Auto) 0.0 0.0 Baso # (Auto) 0.0 0.0 Immature Gran # (Auto) 0.08 H 0.04 H Absolute Nucleated RBC 0.00 0.00 Immature Gran % 1 H 0 Nucleated RBC % 0 0 PT 12.0 13.3 H INR 1.1 1.2 APTT 25.2 Sodium 138 136 Potassium 3.2 L 4.8 D Chloride 104 102 Carbon Dioxide 24.2 23.9 Anion Gap 10 10 BUN 12 12 Creatinine 0.8 0.8 Estim Creat Clear Calc 90.7 77.4 eGFR > 60 > 60 BUN/Creatinine Ratio 15 15 Glucose [address] Glu mg/dL 111 Hemoglobin A1c 5.5 Calculated Osmolality 275 269 L Calcium 8.7 8.7 Corrected Calcium 8.8 8.9 Phosphorus 2.6 Magnesium 1.6 2.2 Total Bilirubin 0.9 0.9 AST 17 19 ALT 10 10 Alkaline Phosphatase 80 81 Troponin I < 0.020 Total Protein 6.6 6.6 Albumin 3.9 3.8 Globulin 2.7 2.8 Albumin/Globulin Ratio 1.4 1.4 Triglycerides 110 Cholesterol 148 LDL Cholesterol, Calc 95 HDL Cholesterol 31 L Cholesterol/HDL Ratio 4.8 TSH 2.24 Ur Collection Type Catheter Urine Color Yellow Urine Clarity Clear Urine pH 7.0 Ur Specific [place] 1.010 Urine Protein Negative Urine Glucose (UA) Negative Urine Ketones 1+ A Urine Blood Negative Urine Nitrite Negative Urine Bilirubin Negative Urine Urobilinogen (Auto) 2.0 Ur Leukocyte Esterase Negative Urine RBC 5 H Urine WBC 1 Ur Squamous Epith Cells 0 Urine Bacteria None Urine Opiates Screen Negative Urine Fentanyl Screen Negative Ur Barbiturates Screen Negative U Amphetamin/Meth Scrn Negative U Benzodiazepines Scrn Negative U Cocaine Metab Screen Negative U Marijuana (THC) Screen Negative HCG (Qual) Negative Quality Measures Quality Measures VTE prophylaxis and stroke Suspected type of Stroke: Non Acute Last known well (date): 01/11/25 Last known well (time): 08:00 Tenecteplase given: Reason(s) Tenecteplase not given: Outside the time window not given Rehab services: PT evaluation ordered and Speech Language Pathology eval ordered VTE Prophylaxis: pharmaceutical Antithrombotic by day 2:: contraindicated (describe) Statin ordered: n/a Anticoagulation ordered for A-fib or flutter (current or hx): not indicated Assessment & Plan Assessment Current Active Medications: Generic Name Dose Route Start Last Admin Trade Name Freq PRN Reason Stop Dose Admin Acetaminophen 650 mg 01/11/25 17:22 Acetaminophen 325 Mg Tablet PO 02/10/25 17:21 Q6H PRN Fever >100.4 Acetaminophen 650 mg 01/11/25 17:22 Acetaminophen 325 Mg Tablet PO 02/10/25 17:21 Q6H PRN PAIN SCALE 1-3 (mild Enoxaparin Sodium 40 mg 01/12/25 09:00 Enoxaparin Sod Inj 40 Mg/0.4 Ml Syringe SC 01/26/25 08:59 QDAY LIZZ Ondansetron HCl 4 mg 01/11/25 17:22 Ondansetron Inj 2 Mg/Ml Inj 2 Ml IVP 02/10/25 17:21 Q6H PRN NAUSEA OR VOMITING Protocol Oxycodone/Acetaminophen 1 tab 01/11/25 17:22 Oxycodone/Apap 5/325 Tablet PO 01/16/25 17:21 Q6H PRN PAIN SCALE 4-6 (Moderate Pantoprazole Sodium 40 mg 01/12/25 09:00 Pantoprazole 40 Mg Tablet PO 02/11/25 08:59 QDAY LIZZ Sennosides 1 tab 01/11/25 17:22 Senna Tablet PO 02/10/25 17:21 QDAY PRN constipation Protocol Plan # Acute Dysarthria, improving Speech close to baseline Speech consulted, reports chronic mild dysphagia without aspiration. MRI brain w/ contrast: No abnormal enhancing cerebellar or cerebral lesions PT rec: SNF Plan: Pending SNF placement # Hx of multiple sclerosis Pt not interested in restarting disease modifying treatment at this time Patient able to walk with physical therapy and on examination today Plan: No need for high-dose steroid infusion at this time Encouraged patient to participate in PT # Recent unexplained weight loss Plan: Management/workup per primary Plan discussed with Dr. Aguila Newman, PGY1 Attending Provider Attestation/Addendum I have seen and examined the patient at the bedside and agreed with resident's findings, assessment and plan of care. MRI brain showed no contrast-enhancing cerebral or cerebellar lesions: No active MS lesions noted. Patient has agreed to go to inpatient rehab for short-term. He is still convinced that all the chronic symptoms that he has been feeling are all from medication related side effect and does not want to shikha any disease modifying treatment at this point. Patient is neurologically stable at present. No need for steroid infusion.
[2025-01-12] MEDS: ENOXAPARIN SOD INJ 40 MG/0.4 ML SYRINGE SC (08:33)
[2025-01-12] MEDS: PANTOPRAZOLE 40 MG TABLET PO (08:33)
--- NOTE | 2025-01-12 11:40 | PC.SS ---
Patient Ashok James is a 59 Year old male admitted for Altered. SS met with patient at bedside to discuss discharge plan. Patient appeared to be alert and oriented, patients son is at bedside. Patient reports he lives at home alone. Patient reports his Son, Ashok James is his surrogate decision maker, [phone]. Patient reports that prior to admission he would utilize a Rollator walker as needed to assist with ambulation. Patient is able to complete all ADL's independently. Patients PCP is Michele Leggett. At time of discharge patient will return home once medically cleared, family will provide transportation. Next of Kin: SonAshok Discharge Plan: Home
--- NOTE | 2025-01-12 14:28 | PC.SS ---
SS follow up note; MRI and echo pending as well as PT eval. Patient will discharge home when medically cleared.
--- NOTE | 2025-01-12 16:36 | ESPR_ITS ---
<Statement entered by Andrew Rader MD - 01/12/25 17:58> Patient was seen and examined at the bedside. This morning, patient's blood glucose. Juices were given. MRI brain with contrast was negative. Neurology recommended to start medications for multiple sclerosis. Patient refused to start MS flare medications. Physical therapy recommended SNF placement to improve overall mobility and strength. creative services producer were updated regarding the plan. Pending on SNF placement. I discussed and supervised with the international trade manager physician who took care of this patient. I personally saw and examined the patient. I agree with most of the assessment and plan. Disclaimer: Despite multiple revisions, due to the dictation software being used, the document bellow may not be free of grammatical errors including phonetic/typographic errors. However, this does not deter from our commitment to providing health care in the patient's best interest in mind. Plan of care discussed with attending Physician Dr. Nuno Rader MD PGY-3 Documentation for date of: 01/12/25 Subjective Subjective Interval history: No overnight events. Evaluated at bedside. Pt passed swallow evaluation. Pt's morning lab this morning show a glucose of 69. Bedside POC glucose 65, orange juice given by nursing staff. Repeat POC glucose 121. Pt resumes normal diet. MRI brain with contrast today shows no abnormal enhancing cerebellar or cerebral lesions. Pt refused to continue MS medications due to its side effect and understand the risks of untreated MS and the potential benefits of medications. The pt's decision to stop medication is based on their understanding of the information and their desire to improve their health. The patient has the capacity to make this decision. Physical therapist recommends SNF placement to improve overall mobility, strength, and gait prior to returning home. Pending SNF placement. Exam Vital Signs Temp Pulse Resp BP Pulse Ox O2 Del Method 98.4 F 80 16 99/63 100 Room Air 01/12/25 12:01/12/25 12:01/12/25 12:01/12/25 12:01/12/25 12:01/12/25 07:39 Narrative Exam General: NAD. Oriented x 3, normal mood and affect . Slur speech at baseline. Skin: Good turgor, no rash, unusual bruising or prominent lesions Head: Normocephalic, atraumatic, no visible or palpable masses, depressions, or scaring. Eyes: Visual acuity intact, conjunctiva clear, sclera non-icteric, EOM intact, PERRL, no exudates or hemorrhages. Horizontal nystagmus on right gaze at baseline. Heart: No cardiomegaly or thrills; regular rate and rhythm, no murmur or gallop Lungs: Clear to auscultation and percussion. No rales, wheeze, or rhonchi Abdomen: Bowel sounds normal, no tenderness, organomegaly, masses, or hernia Back: No CVA tenderness Extremities: No amputations or deformities, cyanosis, edema or varicosities, peripheral pulses intact. 5/5 strength is all four extremities. Musculoskeletal: Muscle atrophy consistent with old age Neurologic: Sensation to pain, touch, and proprioception normal. Objective Labs 01/13/25 05:25 01/13/25 05:25 Labs: Laboratory Results - last 24 hr 01/12/25 05:03 WBC 9.9 RBC 4.21 L Hgb 12.6 L Hct 36.3 L MCV 86 MCH 29.9 MCHC 34.7 RDW Std Deviation 39.8 Plt Count 165 D Neut % (Auto) 93 H Lymph % (Auto) 3 L [place] % (Auto) 3 Eos % (Auto) 0 Baso % (Auto) 0 Neut # (Auto) 9.2 H Lymph # (Auto) 0.3 L [place] # (Auto) 0.3 Eos # (Auto) 0.0 Baso # (Auto) 0.0 Immature Gran # (Auto) 0.04 H Absolute Nucleated RBC 0.00 Immature Gran % 0 Nucleated RBC % 0 PT 13.3 H INR 1.2 Sodium 136 Potassium 4.8 D Chloride 102 Carbon Dioxide 23.9 Anion Gap 10 BUN 12 Creatinine 0.8 Estim Creat Clear Calc 77.4 eGFR > 60 BUN/Creatinine Ratio 15 [address]ucose [address] Glu mg/dL 111 Hemoglobin A1c 5.5 Calculated Osmolality 269 L Calcium 8.7 Corrected Calcium 8.9 Phosphorus 2.6 Magnesium 2.2 Total Bilirubin 0.9 AST 19 ALT 10 Alkaline Phosphatase 81 Total Protein 6.6 Albumin 3.8 Globulin 2.8 Albumin/Globulin Ratio 1.4 Triglycerides 110 Cholesterol 148 LDL Cholesterol, Calc 95 HDL Cholesterol 31 L Cholesterol/HDL Ratio 4.8 TSH 2.24 Quality Measures Quality Measures VTE prophylaxis and stroke Suspected type of Stroke: Non Acute Last known well (date): 01/11/25 Last known well (time): 08:00 Tenecteplase given: Reason(s) Tenecteplase not given: Outside the time window not given Rehab services: PT evaluation ordered VTE Prophylaxis: pharmaceutical Antithrombotic by day 2:: not indicated (describe) (stroke ruled out, likely MS flare. ) Statin ordered: n/a Anticoagulation ordered for A-fib or flutter (current or hx): not indicated Assessment & Plan Assessment Current Active Medications: Generic Name Dose Route Start Last Admin Trade Name Freq PRN Reason Stop Dose Admin Acetaminophen 650 mg 01/11/25 17:22 Acetaminophen 325 Mg Tablet PO 02/10/25 17:21 Q6H PRN Fever >100.4 Acetaminophen 650 mg 01/11/25 17:22 Acetaminophen 325 Mg Tablet PO 02/10/25 17:21 Q6H PRN PAIN SCALE 1-3 (mild Enoxaparin Sodium 40 mg 01/12/25 09:00 01/12/25 08:33 Enoxaparin Sod Inj 40 Mg/0.4 Ml Syringe SC 01/26/25 08:59 40 mg QDAY LIZZ Administration Ondansetron HCl 4 mg 01/11/25 17:22 Ondansetron Inj 2 Mg/Ml Inj 2 Ml IVP 02/10/25 17:21 Q6H PRN NAUSEA OR VOMITING Protocol Oxycodone/Acetaminophen 1 tab 01/11/25 17:22 Oxycodone/Apap 5/325 Tablet PO 01/16/25 17:21 Q6H PRN PAIN SCALE 4-6 (Moderate Pantoprazole Sodium 40 mg 01/12/25 09:00 01/12/25 08:33 Pantoprazole 40 Mg Tablet PO 02/11/25 08:59 40 mg QDAY LIZZ Administration Sennosides 1 tab 01/11/25 17:22 Senna Tablet PO 02/10/25 17:21 QDAY PRN constipation Protocol Plan 59M with history of MS and dysarthria presents for weakness. Concerns for possible stroke by family member due to slur speech that is uncharacteristic to his baseline. Stroke alert initiated in ED. Initial CT head and CTA Head and neck unremarkable. MRI Brain shows prominent white matter change, correlating with MS history. Admitted for stroke rule out. Pending SNF placement. Estimated D/C date [place] 7/25. Pt refused to continue MS medications due to its side effect and understand the risks of untreated MS and the potential benefits of medications. The pt's decision to stop medication is based on their understanding of the information and their desire to improve their health. The patient has the capacity to make this decision. #Stroke rule out #MS Flareup #Dysarthia Initial stroke work up negative. Negative CT head and CTA head and neck. No focal neuro deficit noted on physical exam. NIHSS of 2. - Tele Neuro consulted. Dr. Patel recommends no intervention at this time. Pt not a candidate for TnK. - Neuro consult : No need for high-dose steroid infusion at this time. Pt refused to continue MS medications and have the capacity to make this decision. - MRI Brain with contrast shows no abnormal enhancing cerebellar or cerebral lesions. - Pending echo - Speech eval : Passed swallow evaluation - aspiration precaution - Resume regular diet - PT eval : Recommend SNF placement once d/c from hospital to improve overall mobility, strength, and gait prior to returning back to home #Encephalopathy - unlikely - UDS negative - Glucose 100 on admission - AST/ALT WNL on admission #Hypothyroidism - unlikely - TSH 2.24 Dispo: Tele DVT prophylaxis: Lovenox 40mg QD GI prophylaxis: Protonix 40mg QD Diet: Regular diet Lines: Peripheral IV Code status: Limited code (NO INTUBATION) Case discussed with my senior resident Dr. Rader Case discussed with my attending Dr. Nuno Chamberlain DO PGY 1 Attending Provider Attestation/Addendum Negin Muñoz DO, attest that I was physically present for the wei portions of the service and evaluated the patient with the resident and I reviewed and discussed the case with the resident and agree with the resident's findings and plans of care as documented above Patient seen and evaluated this a.m. He states that he is feeling well. He continues to have mild pain in his left arm, but no acute issues. Physical therapy [facility] due to patient's generalized weakness and gait instability. MRI with contrast was done and she does not show any activation of MS. Patient continues to complain that the fingolimod has been causing him more issues and worsening of his MS. No indication for high- dose steroids at this time as acute flare of MS is unlikely. Anticipate discharge within the next 72 hours for SNF placement.
[2025-01-13] VITALS (9 sets, daily range): BP systolic 109–126; BP diastolic 64–82; PULSE 53–77; RESP 14–100; TEMP 36–36.8; O2SAT 99–100; BMI 13.0
[2025-01-13 06:30] LABS: Basophils # (Auto) 0.0 Thou/mm3 (0.0-0.2); Basophils % (Auto) 1 % (0-2.5); Eosinophils # (Auto) 0.1 Thou/mm3 (0.0-0.5); Eosinophils % (Auto) 2 % (0-10); Hematocrit 37.2 % (41.0-53.0); Hemoglobin 12.7 g/dL (13.5-16.0); Immature Granulocytes Auto 0.02 Thou/mm3 (0.00-0.00); Lymphocytes # (Auto) 0.5 Thou/mm3 (1.0-4.8); Lymphocytes % (Auto) 12 % (10-50); Mean Corpuscular HGB Conc 34.1 g/dl (31.0-37.0); Mean Corpuscular Hemoglobin 30.0 pg (25.0-35.0); Mean Corpuscular Volume 88 fL (80-100); Monocytes # (Auto) 0.3 Thou/mm3 (0.0-0.8); Monocytes % (Auto) 7 % (0-12); Neutrophils # (Auto) 3.4 Thou/mm3 (1.8-7.7); Neutrophils % (Auto) 79 % (37-80); Nucleated Red Blood Cell # 0.00 Thou/mm3 (0.00-0.00); Nucleated Red Blood Cell % 0 /100 WBC (0); Platelet Count 189 Thou/mm3 (140-440); RDW Standard Deviation 41.3 fL (35.1-43.9); Red Blood Count 4.24 Miln/mm3 (4.50-5.90); White Blood Count 4.3 Thou/mm3 (3.8-10.6)
[2025-01-13 06:45] LABS: Alanine Aminotransferase 12 U/L (10-49); Albumin, Serum 3.7 gm/dL (3.4-4.8); Albumin/Globulin Ratio 1.4 (1.2-2.2); Alkaline Phosphatase 77 U/L (46-116); Anion Gap 7 (7-16); Aspartate Amino Transferase 20 U/L (0-34); BUN/Creatinine Ratio 13 Ratio (12-20); Bilirubin,Total 0.5 mg/dL (0.3-1.2); Blood Urea Nitrogen 10 mg/dL (9-23); Calcium 8.6 mg/dL (8.3-10.6); Calcium (Corrected) 8.8 mg/dL (8.5-10.1); Carbon Dioxide 28.5 mMol/L (20.0-31.0); Chloride 103 mMol/L (98-107); Creatinine (Component) 0.8 mg/dL (0.6-1.3); Estimated Creatinine Clearance 77.4 mL/min (>60); Globulin 2.7 gm/dL (2.3-3.5); Glucose 101 mg/dL (74-106); Magnesium 2.0 mg/dL (1.6-2.6); Osmolality,Calculated 274 (275-295); Phosphorous 2.7 mg/dL (2.4-5.1); Potassium 4.2 mMol/L (3.4-5.1); Sodium 138 mMol/L (136-145); Total Protein 6.4 gm/dL (5.7-8.2); eGFR > 60 See Note
--- NOTE | 2025-01-13 08:40 | PC.SS ---
Addendum entered by Hanh Shukla 01/13/25 10:39: SS follow up note; SS contacted patient's son Ashok to present SNF choices, he informed SS he would like patient to discharge to [facility]. Patient agreeable to discharge to [facility]. SS contacted Etta from [facility] and she informed SS they are able to accept patient. Patient will meet three midnights tomorrow, therefore will discharge tomorrow to [facility]. SS will stand by for further needs. Original Note: SS follow up note; SS sent SNF referral through [employer]. SS will contact patient's son Ashok to present SNF choices.
[2025-01-13] MEDS: PANTOPRAZOLE 40 MG TABLET PO (09:14)
[2025-01-13] MEDS: ENOXAPARIN SOD INJ 40 MG/0.4 ML SYRINGE SC (09:14)
--- NOTE | 2025-01-13 13:29 | ESPR_ITS ---
Documentation for date of: 01/13/25 Subjective Subjective Interval history: Patient evaluated at bedside, no new concerns. Pending SNF placement Exam Vital Signs Temp Pulse Resp BP Pulse Ox O2 Del Method 97.4 F 68 16 109/77 99 Room Air 01/13/25 12:00 01/13/25 12:00 01/13/25 12:00 01/13/25 12:00 01/13/25 12:00 01/13/25 07:49 Narrative Exam GENERAL APPEARANCE: well developed, thin built male in no acute distress. HEENT: Normocephalic, atraumatic, extraocular movements intact. Pupils: Equal reacting to light and accommodation NECK: Supple, no JVD or bruits. CARDIOVASULAR: Heart: S1, S2 heard, regular without S3-S4 or murmur no rubs or gallops. LUNGS/CHEST: Clear to auscultation bilaterally. No rails, rhonchi, or wheezing. Normal inspection. ABDOMEN: Soft, nontender, with normal bowel sounds. No pulsatile masses. No rebound, rigidity, or guarding. Normal inspection and palpation. EXTREMITIES: Normal inspection and palpation. No edema, clubbing or cyanosis. SKIN: Warm and dry without rashes. Normal inspection. MUSCULOSKELETAL: No cervical, thoracic, lumbar or midline bony tenderness. Normal inspection. NEURO: Alert, awake and oriented x3. Cranial nerves: II through XII grossly intact. Speech and language: dysarthria as at baseline. Motor system: Tone and bulk: Normal: Strength: 5 out of 5 in all 4 extremities; No pronator drift noted. Deep tendon reflexes: 2+ bilaterally symmetrical. Plantar reflex: Downgoing bilaterally. Sensory system: Intact to all modalities of sensation bilaterally. Coordination: Intact to yvvvdx-sotq-zamykc and ohsr-wtfz-mebv test bilaterally. He does have ataxia, dysmetria and intention tremors in both UE. No signs of meningeal irritation noted. Patient able to stand on his own and walk with support. PSYCHIATRIC: Normal mood and affect. Objective Labs 01/13/25 05:25 01/13/25 05:25 Labs: Laboratory Results - last 24 hr 01/13/25 05:25 WBC 4.3 D RBC 4.24 L Hgb 12.7 L Hct 37.2 L MCV 88 MCH 30.0 MCHC 34.1 RDW Std Deviation 41.3 Plt Count 189 Neut % (Auto) 79 Lymph % (Auto) 12 [place] % (Auto) 7 Eos % (Auto) 2 Baso % (Auto) 1 Neut # (Auto) 3.4 Lymph # (Auto) 0.5 L [place] # (Auto) 0.3 Eos # (Auto) 0.1 Baso # (Auto) 0.0 Immature Gran # (Auto) 0.02 H Absolute Nucleated RBC 0.00 Immature Gran % 1 H Nucleated RBC % 0 Sodium 138 Potassium 4.2 D Chloride 103 Carbon Dioxide 28.5 Anion Gap 7 BUN 10 Creatinine 0.8 Estim Creat Clear Calc 77.4 eGFR > 60 BUN/Creatinine Ratio 13 Glucose 101 Calculated Osmolality 274 L Calcium 8.6 Corrected Calcium 8.8 Phosphorus 2.7 Magnesium 2.0 Total Bilirubin 0.5 AST 20 ALT 12 Alkaline Phosphatase 77 Total Protein 6.4 Albumin 3.7 Globulin 2.7 Albumin/Globulin Ratio 1.4 Quality Measures Quality Measures VTE prophylaxis and stroke Suspected type of Stroke: Non Acute Last known well (date): 01/11/25 Last known well (time): 08:00 Tenecteplase given: Reason(s) Tenecteplase not given: Outside the time window not given Rehab services: PT evaluation ordered and Speech Language Pathology eval ordered VTE Prophylaxis: pharmaceutical Antithrombotic by day 2:: not indicated (describe) Statin ordered: <75 y/o high intensity dose Anticoagulation ordered for A-fib or flutter (current or hx): not indicated Assessment & Plan Assessment Current Active Medications: Generic Name Dose Route Start Last Admin Trade Name Freq PRN Reason Stop Dose Admin Acetaminophen 650 mg 01/11/25 17:22 Acetaminophen 325 Mg Tablet PO 02/10/25 17:21 Q6H PRN Fever >100.4 Acetaminophen 650 mg 01/11/25 17:22 Acetaminophen 325 Mg Tablet PO 02/10/25 17:21 Q6H PRN PAIN SCALE 1-3 (mild Enoxaparin Sodium 40 mg 01/12/25 09:00 01/13/25 09:14 Enoxaparin Sod Inj 40 Mg/0.4 Ml Syringe SC 01/26/25 08:59 40 mg QDAY LIZZ Administration Ondansetron HCl 4 mg 01/11/25 17:22 Ondansetron Inj 2 Mg/Ml Inj 2 Ml IVP 02/10/25 17:21 Q6H PRN NAUSEA OR VOMITING Protocol Oxycodone/Acetaminophen 1 tab 01/11/25 17:22 Oxycodone/Apap 5/325 Tablet PO 01/16/25 17:21 Q6H PRN PAIN SCALE 4-6 (Moderate Pantoprazole Sodium 40 mg 01/12/25 09:00 01/13/25 09:14 Pantoprazole 40 Mg Tablet PO 02/11/25 08:59 40 mg QDAY LIZZ Administration Sennosides 1 tab 01/11/25 17:22 Senna Tablet PO 02/10/25 17:21 QDAY PRN constipation Protocol Plan # Acute Dysarthria, improving Speech close to baseline Speech consulted, reports chronic mild dysphagia without aspiration. MRI brain w/ contrast: No abnormal enhancing cerebellar or cerebral lesions. No active MS lesions PT rec: SNF Plan: Pending SNF placement # Hx of multiple sclerosis Pt not interested in restarting disease modifying treatment at this time Patient able to walk with physical therapy and on examination today Plan: No need for high-dose steroid infusion at this time Encouraged patient to participate in PT # Recent unexplained weight loss Plan: Management/workup per primary Plan discussed with Dr. Aguila Newman, PGY1 Attending Provider Attestation/Addendum I personally have seen and examined the patient at the bedside and I agreed with the resident's findings, assessment and plan of care. Significant improvement noted from admission as at baseline. Pending placement
--- NOTE | 2025-01-13 14:50 | PC.NURSE ---
PATIENT WORKED WITH PHYSICAL THERAPY.
--- NOTE | 2025-01-13 17:09 | ESPR_ITS ---
<Statement entered by Andrew Rader MD - 01/13/25 17:16> Patient was seen and examined at the bedside. Patient denied any new symptoms. No acute overnight events reported. Currently pending on SNF placement. Anticipate discharge tomorrow. Stroke was ruled out. Patient refused using medications for MS flare per neurology recommendations patient would benefit from steroids. All labs and orders were reviewed. I discussed and supervised with the seo intern physician who took care of this patient. I personally saw and examined the patient. I agree with most of the assessment and plan. Disclaimer: Despite multiple revisions, due to the dictation software being used, the document bellow may not be free of grammatical errors including phonetic/typographic errors. However, this does not deter from our commitment to providing health care in the patient's best interest in mind. Plan of care discussed with attending Physician Dr. Nuno Rader MD PGY-3 Documentation for date of: 01/13/25 Subjective Subjective Interval history: No overnight events. Evaluated at bedside. Pending SNF placement. Exam Vital Signs Temp Pulse Resp BP Pulse Ox O2 Del Method 98.2 F 64 14 126/79 100 Room Air 01/13/25 16:00 01/13/25 16:00 01/13/25 16:00 01/13/25 16:00 01/13/25 16:00 01/13/25 16:00 Narrative Exam General: NAD. Oriented x 3, normal mood and affect . Slur speech at baseline. Skin: Good turgor, no rash, unusual bruising or prominent lesions Head: Normocephalic, atraumatic, no visible or palpable masses, depressions, or scaring. Eyes: Visual acuity intact, conjunctiva clear, sclera non-icteric, EOM intact, PERRL, no exudates or hemorrhages. Horizontal nystagmus on right gaze at baseline. Heart: No cardiomegaly or thrills; regular rate and rhythm, no murmur or gallop Lungs: Clear to auscultation and percussion. No rales, wheeze, or rhonchi Abdomen: Bowel sounds normal, no tenderness, organomegaly, masses, or hernia Back: No CVA tenderness Extremities: No amputations or deformities, cyanosis, edema or varicosities, peripheral pulses intact. 5/5 strength is all four extremities. Musculoskeletal: Muscle atrophy consistent with old age Neurologic: Sensation to pain, touch, and proprioception normal. Objective Labs 01/13/25 05:25 01/13/25 05:25 Labs: Laboratory Results - last 24 hr 01/13/25 05:25 WBC 4.3 D RBC 4.24 L Hgb 12.7 L Hct 37.2 L MCV 88 MCH 30.0 MCHC 34.1 RDW Std Deviation 41.3 Plt Count 189 Neut % (Auto) 79 Lymph % (Auto) 12 [place] % (Auto) 7 Eos % (Auto) 2 Baso % (Auto) 1 Neut # (Auto) 3.4 Lymph # (Auto) 0.5 L [place] # (Auto) 0.3 Eos # (Auto) 0.1 Baso # (Auto) 0.0 Immature Gran # (Auto) 0.02 H Absolute Nucleated RBC 0.00 Immature Gran % 1 H Nucleated RBC % 0 Sodium 138 Potassium 4.2 D Chloride 103 Carbon Dioxide 28.5 Anion Gap 7 BUN 10 Creatinine 0.8 Estim Creat Clear Calc 77.4 eGFR > 60 BUN/Creatinine Ratio 13 Glucose 101 Calculated Osmolality 274 L Calcium 8.6 Corrected Calcium 8.8 Phosphorus 2.7 Magnesium 2.0 Total Bilirubin 0.5 AST 20 ALT 12 Alkaline Phosphatase 77 Total Protein 6.4 Albumin 3.7 Globulin 2.7 Albumin/Globulin Ratio 1.4 Quality Measures Quality Measures VTE prophylaxis and stroke Suspected type of Stroke: Non Acute Last known well (date): 01/11/25 Last known well (time): 08:00 Tenecteplase given: Reason(s) Tenecteplase not given: Outside the time window not given Rehab services: PT evaluation ordered VTE Prophylaxis: pharmaceutical Antithrombotic by day 2:: not indicated (describe) (stroke ruled out) Statin ordered: n/a Anticoagulation ordered for A-fib or flutter (current or hx): not indicated Assessment & Plan Assessment Current Active Medications: Generic Name Dose Route Start Last Admin Trade Name Freq PRN Reason Stop Dose Admin Acetaminophen 650 mg 01/11/25 17:22 Acetaminophen 325 Mg Tablet PO 02/10/25 17:21 Q6H PRN Fever >100.4 Acetaminophen 650 mg 01/11/25 17:22 Acetaminophen 325 Mg Tablet PO 02/10/25 17:21 Q6H PRN PAIN SCALE 1-3 (mild Enoxaparin Sodium 40 mg 01/12/25 09:00 01/13/25 09:14 Enoxaparin Sod Inj 40 Mg/0.4 Ml Syringe SC 01/26/25 08:59 40 mg QDAY LIZZ Administration Ondansetron HCl 4 mg 01/11/25 17:22 Ondansetron Inj 2 Mg/Ml Inj 2 Ml IVP 02/10/25 17:21 Q6H PRN NAUSEA OR VOMITING Protocol Oxycodone/Acetaminophen 1 tab 01/11/25 17:22 Oxycodone/Apap 5/325 Tablet PO 01/16/25 17:21 Q6H PRN PAIN SCALE 4-6 (Moderate Pantoprazole Sodium 40 mg 01/12/25 09:00 01/13/25 09:14 Pantoprazole 40 Mg Tablet PO 02/11/25 08:59 40 mg QDAY LIZZ Administration Sennosides 1 tab 01/11/25 17:22 Senna Tablet PO 02/10/25 17:21 QDAY PRN constipation Protocol Plan 59M with history of MS and dysarthria presents for weakness. Concerns for possible stroke by family member due to slur speech that is uncharacteristic to his baseline. Stroke alert initiated in ED. Initial CT head and CTA Head and neck unremarkable. MRI Brain shows prominent white matter change, correlating with MS history. Admitted for stroke rule out. Pt refused to continue MS medications due to its side effect and understand the risks of untreated MS and the potential benefits of medications. The pt's decision to stop medication is based on their understanding of the information and their desire to improve their health. The patient has the capacity to make this decision. Pending SNF placement. Estimated D/C date Sunday 01/14. #Stroke rule out #MS Flareup #Dysarthia Initial stroke work up negative. Negative CT head and CTA head and neck. No focal neuro deficit noted on physical exam. NIHSS of 2. - Tele Neuro consulted. Dr. Patel recommends no intervention at this time. Pt not a candidate for TnK. - Neuro consult : No need for high-dose steroid infusion at this time. Pt refused to continue MS medications and have the capacity to make this decision. - MRI Brain with contrast shows no abnormal enhancing cerebellar or cerebral lesions. - Pending echo - Speech eval : Passed swallow evaluation - aspiration precaution - Resume regular diet - PT eval : Recommend SNF placement once d/c from hospital to improve overall mobility, strength, and gait prior to returning back to home #Encephalopathy - unlikely - UDS negative - Glucose 100 on admission - AST/ALT WNL on admission #Hypothyroidism - unlikely - TSH 2.24 Dispo: Tele DVT prophylaxis: Lovenox 40mg QD GI prophylaxis: Protonix 40mg QD Diet: Regular diet Lines: Peripheral IV Code status: Limited code (NO INTUBATION) Case discussed with my senior resident Dr. Rader Case discussed with my attending Dr. Nuno Chamberlain DO PGY 1 Attending Provider Attestation/Addendum Negin Muñoz DO, attest that I was physically present for the wei portions of the service and evaluated the patient with the resident and I reviewed and discussed the case with the resident and agree with the resident's findings and plans of care as documented above Patient seen eval this a.m. No acute events overnight. He remains at baseline and no new deficits noted. Patient is pending SNF placement at this time. He reports mild left arm pain, but this is chronic and unchanged.
--- NOTE | 2025-01-13 19:09 | PC.NURSE ---
Patient refused cardiac echo as per tech.
--- NOTE | 2025-01-13 23:57 | PD.NEUROPROG ---
Documentation for date of: 01/13/25 Subjective Subjective Interval history: Mr. James was seen in [facility], continues to c/o weakness and is waiting for rehab placement. Exam - Neurology Vital Signs Temp Pulse Resp BP Pulse Ox O2 Del Method 97.5 F 66 16 118/82 100 Room Air 01/13/25 20:00 01/13/25 20:00 01/13/25 20:00 01/13/25 20:00 01/13/25 20:00 01/13/25 20:00 Narrative Exam GENERAL APPEARANCE: well developed, thin built male in no acute distress. HEENT: Normocephalic, atraumatic, extraocular movements intact. Pupils: Equal reacting to light and accommodation NECK: Supple, no JVD or bruits. CARDIOVASULAR: Heart: S1, S2 heard, regular without S3-S4 or murmur no rubs or gallops. LUNGS/CHEST: Clear to auscultation bilaterally. No rails, rhonchi, or wheezing. Normal inspection. ABDOMEN: Soft, nontender, with normal bowel sounds. No pulsatile masses. No rebound, rigidity, or guarding. Normal inspection and palpation. EXTREMITIES: Normal inspection and palpation. No edema, clubbing or cyanosis. SKIN: Warm and dry without rashes. Normal inspection. MUSCULOSKELETAL: No cervical, thoracic, lumbar or midline bony tenderness. Normal inspection. NEURO: Alert, awake and oriented x3. Cranial nerves: II through XII grossly intact. Speech and language: dysarthria as at baseline. Motor system: Tone and bulk: Normal: Strength: 5 out of 5 in all 4 extremities; No pronator drift noted. Deep tendon reflexes: 2+ bilaterally symmetrical. Plantar reflex: Downgoing bilaterally. Sensory system: Intact to all modalities of sensation bilaterally. Coordination: Intact to yphjlo-qlgk-hacvt and wbqy-bzbi-aljw test bilaterally. Significant ataxia and dysmetria noted. No intention tremors noted. Gait: not tested. No signs of meningeal irritation noted. PSYCHIATRIC: Normal mood and affect. Objective Labs 01/14/25 05:23 01/14/25 05:23 Labs: Laboratory Results - last 24 hr 01/13/25 05:25 WBC 4.3 D RBC 4.24 L Hgb 12.7 L Hct 37.2 L MCV 88 MCH 30.0 MCHC 34.1 RDW Std Deviation 41.3 Plt Count 189 Neut % (Auto) 79 Lymph % (Auto) 12 [place] % (Auto) 7 Eos % (Auto) 2 Baso % (Auto) 1 Neut # (Auto) 3.4 Lymph # (Auto) 0.5 L [place] # (Auto) 0.3 Eos # (Auto) 0.1 Baso # (Auto) 0.0 Immature Gran # (Auto) 0.02 H Absolute Nucleated RBC 0.00 Immature Gran % 1 H Nucleated RBC % 0 Sodium 138 Potassium 4.2 D Chloride 103 Carbon Dioxide 28.5 Anion Gap 7 BUN 10 Creatinine 0.8 Estim Creat Clear Calc 77.4 eGFR > 60 BUN/Creatinine Ratio 13 Glucose 101 Calculated Osmolality 274 L Calcium 8.6 Corrected Calcium 8.8 Phosphorus 2.7 Magnesium 2.0 Total Bilirubin 0.5 AST 20 ALT 12 Alkaline Phosphatase 77 Total Protein 6.4 Albumin 3.7 Globulin 2.7 Albumin/Globulin Ratio 1.4 Assessment & Plan Assessment and plan (1) Dysarthria: Status: Acute Assessment and plan: improving. speech back to baseline. reassured him regarding the negative MRI for acute stroke or acute MS exacerbation. (2) Hx of multiple sclerosis: Status: Chronic Assessment and plan: not interested in restarting disease modifying treatment at this time. waiting for rehab placement (3) Recent unexplained weight loss: Status: Acute Assessment and plan: consider w/u to know the etiology by primary team. (4) Hypokalemia: Status: Resolved Assessment and plan: needs replacement
[2025-01-14] VITALS: BP 115/84; PULSE 89; RESP 18; TEMP 36.5; O2SAT 100
[2025-01-14 04:00] VITALS: BP 119/76; PULSE 65; RESP 15; TEMP 36.7; O2SAT 100
--- NOTE | 2025-01-14 05:30 | PC.NURSE ---
Patient is awake, stated I want to go home and not to go to a skilled nursing, I can function and take care of myself . Instructed pt that MD will be informed this morning about his concern being discharged to a SNF.
[2025-01-14 06:24] LABS: Basophils # (Auto) 0.0 Thou/mm3 (0.0-0.2); Basophils % (Auto) 1 % (0-2.5); Eosinophils # (Auto) 0.1 Thou/mm3 (0.0-0.5); Eosinophils % (Auto) 2 % (0-10); Hematocrit 35.5 % (41.0-53.0); Hemoglobin 11.8 g/dL (13.5-16.0); Immature Granulocytes Auto 0.02 Thou/mm3 (0.00-0.00); Lymphocytes # (Auto) 0.5 Thou/mm3 (1.0-4.8); Lymphocytes % (Auto) 16 % (10-50); Mean Corpuscular HGB Conc 33.2 g/dl (31.0-37.0); Mean Corpuscular Hemoglobin 29.6 pg (25.0-35.0); Mean Corpuscular Volume 89 fL (80-100); Monocytes # (Auto) 0.3 Thou/mm3 (0.0-0.8); Monocytes % (Auto) 8 % (0-12); Neutrophils # (Auto) 2.4 Thou/mm3 (1.8-7.7); Neutrophils % (Auto) 73 % (37-80); Nucleated Red Blood Cell # 0.00 Thou/mm3 (0.00-0.00); Nucleated Red Blood Cell % 0 /100 WBC (0); Platelet Count 166 Thou/mm3 (140-440); RDW Standard Deviation 42.3 fL (35.1-43.9); Red Blood Count 3.99 Miln/mm3 (4.50-5.90); White Blood Count 3.3 Thou/mm3 (3.8-10.6)
[2025-01-14 07:14] LABS: Alanine Aminotransferase 12 U/L (10-49); Albumin, Serum 3.6 gm/dL (3.4-4.8); Albumin/Globulin Ratio 1.4 (1.2-2.2); Alkaline Phosphatase 65 U/L (46-116); Anion Gap 8 (7-16); Aspartate Amino Transferase 19 U/L (0-34); BUN/Creatinine Ratio 14 Ratio (12-20); Bilirubin,Total 0.4 mg/dL (0.3-1.2); Blood Urea Nitrogen 11 mg/dL (9-23); Calcium 8.6 mg/dL (8.3-10.6); Calcium (Corrected) 8.9 mg/dL (8.5-10.1); Carbon Dioxide 28.0 mMol/L (20.0-31.0); Chloride 104 mMol/L (98-107); Creatinine (Component) 0.8 mg/dL (0.6-1.3); Estimated Creatinine Clearance 77.4 mL/min (>60); Globulin 2.5 gm/dL (2.3-3.5); Glucose 91 mg/dL (74-106); Magnesium 1.9 mg/dL (1.6-2.6); Osmolality,Calculated 278 (275-295); Phosphorous 3.2 mg/dL (2.4-5.1); Potassium 4.1 mMol/L (3.4-5.1); Sodium 140 mMol/L (136-145); Total Protein 6.1 gm/dL (5.7-8.2); eGFR > 60 See Note
[2025-01-14 08:00] VITALS: BP 123/75; PULSE 63; RESP 18; TEMP 36.3; O2SAT 9
--- NOTE | 2025-01-14 09:23 | PC.SS ---
Addendum entered by Hanh Shukla 01/14/25 10:28: SS follow up note: SS was contacted by [facility] to set up transportation for patient. ETA will be for 1300. SS contacted patient's daughter, Daysi and son Ashok and updated them with ETA. SS also updated patient and will update patient's nurse as well. Original Note: SS follow up note; Patient will be discharging to [facility] today. set up transportation through [facility], Reference # [id number].
[2025-01-14] MEDS: ENOXAPARIN SOD INJ 40 MG/0.4 ML SYRINGE SC (09:32)
[2025-01-14] MEDS: PANTOPRAZOLE 40 MG TABLET PO (09:32)
[2025-01-14] MEDS: Magnesium Sulfate 2 GM Ivpb 2 GM/50 ML BAG IV (09:32)
--- NOTE | 2025-01-14 10:54 | PC.NURSE ---
DISCHARGE ORDER THIS MORNING, PT NEEDS TRANSPORTATION TO [facility], ETA 1300
[2025-01-14 11:59] VITALS: PULSE 82
[2025-01-14 12:00] VITALS: BP 95/76; PULSE 76; RESP 19; TEMP 36.6; O2SAT 99
--- NOTE | 2025-01-14 12:00 | PC.NURSE ---
DISCHARGE INSTRUCTIONS GIVEN TO GLORIA WALLER AT [facility], ETA 1400
--- NOTE | 2025-01-14 12:27 | PC.NURSE ---
SUPERVISOR RIPRAP PLACING REMOVED, PLACED AT SHORT PIECE HANDLER BY GAUGE AND WEIGH MACHINE ADJUSTER .
--- NOTE | 2025-01-14 14:41 | ESDS_ITS ---
<Statement entered by Mary Alice Espana MD - 01/18/25 08:03> I reviewed above note and agree with findings and plans. I have also personally examined the patient with medicine team and went over assessment and plan with medical team including international student advisor and resident physician. <Statement entered by Kwaku Schmidt MD - 01/14/25 14:50> Patient seen and examined at bedside. I discussed and supervised with the international student advisor physician who took care of this patient. I personally saw and examined the patient. I agree with most of the assessment and plan. Plan of care discussed with attending Dr. Espana. Kwaku Schmidt MD PGY-2 Planned Discharge Date 01/14/25 DS: Providers Provider Date of admission: 01/11/25 17:22 Primary care physician: Michele Leggett MD Admitting Provider: Negin Reina DO Attending Provider on Admission: Negin Reina DO Consults: 01/11/25 14:08 Consult to Neurology / Tele-Neurology Routine Comment: Consulting Provider: [facility] 01/11/25 16:54 Consult to Neurology / Tele-Neurology Stat Comment: Consulting Provider: Willie Sheehan 01/11/25 17:23 PT [Referral Physical Therapy] Routine Comment: Physician Instructions: Referral Speech Therapy Routine Comment: Attending Provider on DC: Mary Alice Espana MD Discharging Provider: RESIDENT Pepe DS: Diagnosis Problem List Completed Was Problem List Reviewed/Reconciled?: Yes Hospital Course Hospital Course Hospital course: The patient is a 59-year-old Ethiopian-speaking male with a history of multiple sclerosis and baseline dysarthria who presented on 01/11/25 after being found by family to be less arousable with slurred speech that was more severe than his baseline. Last known well was 8 AM that morning. A stroke alert was called. In the emergency department, the patient was noted to be alert and oriented with no focal deficits. Initial CT head and CTA head/neck were negative for acute findings or large vessel occlusion. MRI brain without contrast showed chronic white matter changes consistent with MS. NIHSS score was 2. Labs revealed leukocytosis (WBC 12.8) and hypokalemia (K 3.2), both of which were corrected. EKG showed NSR with QTc 451. The patient was not a candidate for thrombolytics and was admitted for stroke workup versus MS flare. Neurology was consulted. An MRI brain with contrast later confirmed no enhancing lesions. Neurology recommended restarting disease- modifying therapy or steroid treatment for suspected flare. The patient refused all MS medications, citing past side effects, and demonstrated appropriate decision-making capacity. He passed swallow evaluation and resumed a regular diet without difficulty. Physical therapy worked with the patient, and although improved, he was deemed not yet safe for independent discharge. A assisted facility (SNF) was recommended for continued rehab. The patient remained hemodynamically stable with no further neurologic changes and was discharged to SNF on 01/14/25. Diagnoses During Admission: #Stroke rule out #Multiple sclerosis flare #Dysarthria #Chronic MS with white matter changes #Functional deconditioning #Resolved leukocytosis #Resolved hypokalemia #Refusal of MS medications with capacity Discharge Plans: Per neurology, you would benefit from treatment for MS. -If you wish to begin treatment at any time, please inform neurologist Dr. Sheehan. Please follow up with your primary doctor in 7-10 days. YOu are being discharged to SNF for further rehab and physical therapy. ----- Plan discussed with attending physician Dr. Espana and senior resident Dr. Clara MD PGY-1 Internal Medicine Time Spent with Patient Time attestation: Total time spent providing and/or coordinating discharge services: Time spent: Greater than 30 minutes Exam Vital Signs Temp Pulse Resp BP Pulse Ox O2 Del Method 97.8 F 76 19 95/76 99 Room Air 01/14/25 12:01/14/25 12:01/14/25 12:00 01/14/25 12:00 01/14/25 12:01/14/25 12:00 Narrative Exam Physical Exam on Discharge General: NAD, alert, cooperative, oriented x3 HEENT: NC/AT, PERRL, EOMI, conjunctiva clear Cardiac: RRR, no murmurs Pulmonary: CTA bilaterally GI: Soft, NT/ND, +BS Neuro: Slurred speech at baseline, no focal deficits, sensation intact, ambulatory with PT Skin: No rash, lesions, or edema Extremities: No cyanosis or clubbing; pulses intact Discharge Plan Plan Patient Disposition: Xfer Skilled Nsg Fac (SNF) Patient condition on transfer: Stable Care Plan Goals: Per neurology, you would benefit from treatment for MS. -If you wish to begin treatment at any time, please inform neurologist Dr. Sheehan. Please follow up with your primary doctor in 7-10 days. YOu are being discharged to SNF for further rehab and physical therapy. Prescriptions/Referrals Prescriptions/Med Rec: No Action No Known Home Medications Referrals: Michele Leggett MD [Primary Care Provider] - Patient/Caregiver Discharge Instructions Discharge Activity: as per physical therapy Education Materials: Multiple Sclerosis, What Is Dysarthria, Dysarthria: Improving Speech Print Language: Ethiopian Stand Alone Forms: Cori Award Info., Patient Portal Info Letter Discharge Order Discharge Orders: Discharge (Routine); Ordered 01/14/25 Ordered By: Kwaku Schmidt Quality Discharge Quality Measures VTE prophylaxis
== END 2025-01-14 13:20 | disposition skilled nursing facility (03) | DRG 60 ==
LOC: SERX 16:59 → SERHOLD 17:35 → S3NX 20:07
PROVIDERS: Emergency Medicine; Admitting Provider Internal Medicine; PCP Internal Medicine; Visit Provider Internal Medicine
DX: G35 Multiple sclerosis (principal); E03.9 Hypothyroidism, unspecified; E87.6 Hypokalemia; R13.10 Dysphagia, unspecified; H55.09 Other forms of nystagmus; D72.829 Elevated white blood cell count, unspecified; Z60.3 Acculturation difficulty; Z87.891 Personal history of nicotine dependence; Z66 Do not resuscitate; Z88.6 Allergy status to analgesic agent
CPT/HCPCS: 36415; 70450; 70496; 70498; 70551; 70552; 71045; 80053; 80061; 80307; 81001; 83036; 83735; 84100; 84443; 84484; 84703; 85025; 85610; 85730; 87086; 92526; 92610; 93005; 93225; 97161; 99285; A4649; A9577; J1650; J3475; Q9967; A9270